=== PATIENT | male | born 1950 | race Caucasian/White ===

== ENCOUNTER 2017-01-17 05:35 | Observation (INO) | payer MEDICAID, OTHER ==
[2017-01-17] MEDS ORDERED: Aspirin 81 MG Tab.Chew PO ONE (05:40)
[2017-01-17] MEDS ORDERED: Nitroglycerin 0.4 MG Tab.SL SL ONE (05:41)
[2017-01-17] MEDS ORDERED: Metoprolol Tartrate 5 MG/5 ML SDV IVPUSH ONE ×2 (05:41→06:05)
[2017-01-17] MEDS ORDERED: Clopidogrel 75 MG Tab PO ONE (05:44)
[2017-01-17] MEDS ORDERED: Nitroglycerin/D5W 25 MG/250 ML BOTTLE IV SCH (05:45)
[2017-01-17] MEDS ORDERED: Heparin Sodium 5,000 Units/ML Vial IVPUSH ONE (06:18)
[2017-01-17] MEDS ORDERED: Heparin Sodium/D5W 25,000 UNITS/500 ML BAG IV STA (06:20)
--- NOTE | 2017-01-17 06:31 | EDM.PDOC ---
ED HPI GENERAL MEDICAL PROBLEM - General Chief Complaint: Chest Pain Stated Complaint: GENERAL Time Seen by Provider: 01/17/17 05:35 Source of Information: Reports: Patient History Limitations: Reports: No Limitations - History of Present Illness INITIAL COMMENTS - FREE TEXT/NARRATIVE: c/o cp watching TV, L sided CP into jaw, pain 06/09, took NTG x 3 at home, dec'd to 8.5 /10 on arrival here via EMS, no meds by EMS, CP 8.5/10 on arrival here, dec'd to 7 after NTG SL x 1 and Lopressor 5 mg IV (which dec'd HR 110 to 85), pt said he had "only twinges" of pain when 03/09, described as much better PO 88% on RA, inc'd to 94% on 6 l/min NC initial SBP 140, dec'd to 130 after NTG x 1, then to 117 after nitro drip 10 mcg /min pt diaphoretic at home, not in EMS, no n/v, no sob smokes < 1 ppd, lives alone stents x 4, last CP and last stent 06/[address] Espinal, senior product consultant with [facility], pt not sure of name last stent may have been [facility], pt not sure basilar rales on exam, no B-lines on bedside u/s, strong contractility of LV on bedside, no pericardial effusion - Related Data Allergies Allergy/AdvReac Type Severity Reaction Status Date / Time acetaminophen Allergy Unknown Cannot Verified 11/12/15 15:45 Remember aspirin Allergy Unknown Cannot Verified 11/12/15 15:45 Remember Iodinated Contrast Media - Allergy Unknown Cannot Verified 11/12/15 15:45 Oral and Remember lactase Allergy Unknown Nausea and Verified 11/12/15 15:45 Vomiting milk Allergy Unknown Cannot Verified 11/12/15 15:45 Remember NSAIDS (Non-Steroidal Allergy Unknown Nausea and Verified 11/12/15 15:45 Anti-Inflamma Vomiting raspberry Allergy Unknown Hives Verified 11/12/15 15:45 Home Meds: Home Meds Aspirin [Mora Chewable Aspirin] 11/12/15 [History] Clopidogrel [Plavix] 11/12/15 [History] Famotidine 11/12/15 [History] Gabapentin [Neurontin] 11/12/15 [History] Methocarbamol 11/12/15 [History] Nitroglycerin [Nitrostat] 0.4 mg SL 11/12/15 [History] Promethazine [Phenergan] 11/12/15 [History] Sucralfate [Carafate] 11/12/15 [History] Tamsulosin [Flomax] 11/12/15 [History] atorvaSTATin [Lipitor] 11/12/15 [History] carBAMazepine [Carbamazepine] 11/12/15 [History] hydrOXYzine Pamoate [Hydroxyzine Pamoate] 11/12/15 [History] Past Medical History HEENT History: Reports: Hard of Hearing, Impaired Vision, Other (See Below) Other HEENT History: dry eye syndrome, tinnitus, migraine headaches, balance problems, seizures Cardiovascular History: Reports: Arrhythmia, CAD, High Cholesterol, Hypertension , CA, Stents Respiratory History: Reports: Asthma, COPD, SOB Other Respiratory History: hx tobacco dependence Gastrointestinal History: Reports: Hepatitis Other Gastrointestinal History: hx of hepatitis B & C, Vitamin B12 deficiency, Pernicious anemia, generalized anemia Genitourinary History: Reports: Prostate Disorder Musculoskeletal History: Reports: Back Pain, Chronic, Neck Pain, Chronic, Other (See Below) Other Musculoskeletal History: joint pain, bracial neuritis Neurological History: Reports: Migraines, Seizure, Other (See Below) Other Neuro History: brachial neuritis or radiculitis, unspecified epilespy, last seizure in 2006, anxiety, dementia Psychiatric History: Reports: Addiction, Anxiety, Bipolar, Dementia, Depression , Schizophrenia, Other (See Below) Other Psychiatric History: cannabis and opioid dependence Endocrine/Metabolic History: Reports: Diabetes, Type II, Other (See Below) Other Endocrine/Metabolic History: Hepatitis B&C Hematologic History: Reports: Anemia, B12 Deficiency, Iron Deficiency Dermatologic History: Reports: Cellulitis - Infectious Disease History Infectious Disease History: Reports: Hepatitis B, Hepatitis C - Past Surgical History Cardiovascular Surgical History: Reports: Coronary Artery Stent, Other (See Below) GI Surgical History: Reports: Appendectomy, Bariatric Procedure, Other (See Below) Musculoskeletal Surgical History: Reports: Shoulder Surgery, Other (See Below) Social & Family History - Family History Oncologic: Reports: Lung - Tobacco Use Smoking Status *Q: Current Every Day Smoker Years of Tobacco use: 50 Packs/Tins Daily: 1 - Recreational Drug Use Recreational Drug Use: Yes ED ROS GENERAL - Review of Systems Review Of Systems: See Below Constitutional: Reports: Diaphoresis HEENT: Reports: No Symptoms Respiratory: Reports: No Symptoms Cardiovascular: Reports: Chest Pain Endocrine: Reports: No Symptoms GI/Abdominal: Reports: No Symptoms : Reports: No Symptoms Musculoskeletal: Reports: Neck Pain Skin: Reports: No Symptoms Neurological: Reports: No Symptoms Psychiatric: Reports: No Symptoms Hematologic/Lymphatic: Reports: No Symptoms Immunologic: Reports: No Symptoms ED EXAM, GENERAL - Physical Exam Exam: See Below Exam Limited By: Other (skin dry, mildly uncomfortable on arrival, no distress or apparent discomfort after initial meds) General Appearance: Alert, WD/WN, No Apparent Distress Ears: Normal External Exam, Normal Canal Nose: Normal Inspection, Normal Mucosa, No Blood Throat/Mouth: Normal Inspection, Normal Lips, Normal Gums, Normal Oropharynx, Normal Voice, No Airway Compromise Head: Atraumatic, Normocephalic Neck: Normal Inspection, Supple, Non-Tender, Full Range of Motion Respiratory/Chest: Other (fair AE, no wheeze, rales at bases, slightly greater on L, no wheezes, no rales) Cardiovascular: Regular Rate, Rhythm, No Gallop, No JVD, No Rub, Other (mild tachy initial, no s3/s4, 2/6 JUAN PABLO at LSB, no heave) GI/Abdominal: Soft, Non-Tender, No Distention Back Exam: Normal Inspection Extremities: Normal Inspection, Normal Range of Motion, Non-Tender, No Pedal Edema, Other (no edema, dec'd turgor UE b/l, no tenting) Neurological: Alert, Oriented, CN II-XII Intact, Normal Cognition, No Motor/ Sensory Deficits Psychiatric: Normal Affect, Normal Mood Skin Exam: Warm, Dry, Intact, Normal Color, No Rash Lymphatic: No Adenopathy Course - Vital Signs Last Recorded V/S: Last Vital Signs Temp 37.0 C 01/17/17 07:00 Pulse 84 01/17/17 07:00 Resp 20 01/17/17 07:00 BP 128/66 01/17/17 07:00 Pulse Ox 96 01/17/17 07:00 - Orders/Labs/Meds Orders: Active Orders 24 hr Category Date Time Status Chest 1V Frontal [CR] Stat Exams 01/17/17 05:46 Taken Heparin Sodium/D5W [Heparin 25,000 Units in D5W 500 ML] Med 01/17/17 06:20 Active 25,000 units in 500 ml IV NOW Nitroglycerin/D5W [Nitroglycerin 25 MG/D5W 250 ML] Med 01/17/17 05:45 Active 25 mg in 250 ml IV TITRATE EKG 12 Lead [EK] Routine Ther 01/17/17 05:46 Ordered EKG 12 Lead [EK] Routine Ther 01/17/17 08:03 Ordered Medication Orders Nitroglycerin/Dextrose (Nitroglycerin 25 Mg/D5w 250 Ml) 25 mg in 250 mls @ 6 mls/hr IV TITRATE ASTON; 10 MCG/MIN PRN Reason: Protocol Last Admin: 01/17/17 06:10 Dose: 10 mcg/min, 6 mls/hr Heparin Sodium/Dextrose (Heparin 25,000 Units In D5w 500 Ml) 25,000 units in 500 mls @ 20 mls/hr IV NOW STA; 1,000 UNITS/HR PRN Reason: Protocol Stop: 01/18/17 07:19 Last Admin: 01/17/17 06:39 Dose: 1,000 units/hr, 20 mls/hr Labs: Laboratory Tests 01/17/17 01/17/17 01/17/17 Range/Units 05:55 05:55 05:55 WBC 9.8 (4.5-12.0) X10-3/uL RBC 5.33 (4.30-5.75) x10(6)uL Hgb 15.1 (11.5-15.5) g/dL Hct 46.1 (30.0-51.3) % MCV 86.5 (80-96) fL MCH 28.3 (27.7-33.6) pg MCHC 32.7 (32.2-35.4) g/dL RDW 15.3 (11.5-15.5) % Plt Count 197 (125-369) X10(3)uL MPV 8.8 (7.4-10.4) fL Neut % (Auto) 78.7 (46-82) % Lymph % (Auto) 7.8 L (13-37) % Knott % (Auto) 10.0 (4-12) % Eos % (Auto) 3 (1.0-5.0) % Baso % (Auto) 0 (0-2) % Neut # (Auto) 7.7 (1.6-8.3) # Lymph # (Auto) 0.8 (0.6-5.0) # Knott # (Auto) 1.0 (0.0-1.3) # Eos # (Auto) 0.3 (0.0-0.8) # Baso # (Auto) 0.0 (0.0-0.2) # PT (8.7-11.1) INR (0.89-1.13) ABG pH (7.35-7.45) ABG pCO2 (35-45) mmHg ABG pO2 (83-108) mmHg ABG HCO3 (22-26) mmol/L ABG O2 Saturation (96-97) % ABG Base Excess (-2-2) Viral Test O2 Delivery Device Sodium 138 (135-145) mmol/L Potassium 3.3 L D (3.5-5.3) mmol/L Chloride 100 D (100-110) mmol/L Carbon Dioxide 27 (23-29) mmol/L BUN 15 (8-23) mg/dL Creatinine 0.8 (0.6-1.3) mg/dL Est Cr Clr Drug Dosing TNP Estimated GFR (MDRD) > 60 (>60) BUN/Creatinine Ratio 18.8 (9-20) Glucose 118 H (80-116) mg/dL Calcium 9.5 (8.6-10.2) mg/dL Total Bilirubin 0.5 (0.1-1.3) mg/dL AST 23 D (5-27) IU/L ALT 15 (14-26) IU/L Alkaline Phosphatase 90 (56-112) IU/L Troponin I 0.01 L (0.02-0.06) NG/ML C-Reactive Protein 0.6 (0.0-1.0) mg/dL B-Natriuretic Peptide (0-100) pg/mL Total Protein 7.4 (6.0-8.0) g/dL Albumin 4.2 (3.2-4.6) g/dL Globulin 3.2 g/dL Albumin/Globulin Ratio 1.3 01/17/17 01/17/17 01/17/17 Range/Units 05:55 05:55 06:00 WBC (4.5-12.0) X10-3/uL RBC (4.30-5.75) x10(6)uL Hgb (11.5-15.5) g/dL Hct (30.0-51.3) % MCV (80-96) fL MCH (27.7-33.6) pg MCHC (32.2-35.4) g/dL RDW (11.5-15.5) % Plt Count (125-369) X10(3)uL MPV (7.4-10.4) fL Neut % (Auto) (46-82) % Lymph % (Auto) (13-37) % Knott % (Auto) (4-12) % Eos % (Auto) (1.0-5.0) % Baso % (Auto) (0-2) % Neut # (Auto) (1.6-8.3) # Lymph # (Auto) (0.6-5.0) # Knott # (Auto) (0.0-1.3) # Eos # (Auto) (0.0-0.8) # Baso # (Auto) (0.0-0.2) # PT 16.1 H (8.7-11.1) INR 1.58 H (0.89-1.13) ABG pH 7.36 (7.35-7.45) ABG pCO2 52 H (35-45) mmHg ABG pO2 86 (83-108) mmHg ABG HCO3 29 H (22-26) mmol/L ABG O2 Saturation 96 (96-97) % ABG Base Excess 2.8 H (-2-2) Viral Test Passed O2 Delivery Device Nasal cannula Sodium (135-145) mmol/L Potassium (3.5-5.3) mmol/L Chloride (100-110) mmol/L Carbon Dioxide (23-29) mmol/L BUN (8-23) mg/dL Creatinine (0.6-1.3) mg/dL Est Cr Clr Drug Dosing Estimated GFR (MDRD) (>60) BUN/Creatinine Ratio (9-20) Glucose (80-116) mg/dL Calcium (8.6-10.2) mg/dL Total Bilirubin (0.1-1.3) mg/dL AST (5-27) IU/L ALT (14-26) IU/L Alkaline Phosphatase (56-112) IU/L Troponin I (0.02-0.06) NG/ML C-Reactive Protein (0.0-1.0) mg/dL B-Natriuretic Peptide 82 (0-100) pg/mL Total Protein (6.0-8.0) g/dL Albumin (3.2-4.6) g/dL Globulin g/dL Albumin/Globulin Ratio Meds: Medications Generic Name Dose Route Start Last Admin Trade Name Freq PRN Reason Stop Dose Admin Nitroglycerin/Dextrose 25 mg in 250 mls @ 6 mls/hr 01/17/17 05:45 01/17/17 06 :10 Nitroglycerin 25 Mg/D5w 250 Ml IV 10 mcg/min TITRATE ASTON 6 mls/hr Protocol Administration 10 MCG/MIN Heparin Sodium/Dextrose 25,000 units in 500 mls @ 20 mls/hr 01/17/17 06:20 06:39 Heparin 25,000 Units In D5w 500 Ml IV 01/18/17 07:19 1,000 units/hr NOW STA 20 mls/hr Protocol Administration 1,000 UNITS/HR Discontinued Medications Generic Name Dose Route Start Last Admin Trade Name Rodriugeq PRN Reason Stop Dose Admin Aspirin 324 mg 01/17/17 05:40 01/17/17 06:54 Aspirin PO 01/17/17 05:41 324 mg ONETIME ONE Administration Clopidogrel Bisulfate 600 mg 01/17/17 05:44 01/17/17 06:55 Plavix PO 01/17/17 05:45 600 mg ONETIME ONE Administration Al Hydroxide/Mg Hydroxide 30 0 ml 01/17/17 06:59 01/17/17 07:46 ml/ Lidocaine HCl 15 ml PO 01/17/17 07:00 15 ml ONETIME ONE Administration Heparin Sodium (Porcine) 4,000 units 01/17/17 06:18 01/17/17 06:38 Heparin Sodium IVPUSH 01/17/17 06:19 4,000 units ONETIME ONE Administration Metoprolol Tartrate 5 mg 01/17/17 05:41 01/17/17 06:54 Lopressor IVPUSH 01/17/17 05:42 5 mg ONETIME ONE Administration Metoprolol Tartrate 5 mg 01/17/17 06:05 01/17/17 06:54 Lopressor IVPUSH 01/17/17 06:06 5 mg ONETIME ONE Administration Nitroglycerin 0.4 mg 01/17/17 05:41 01/17/17 05:41 Nitrostat SL 01/17/17 05:42 0.4 mg ONETIME ONE Administration Potassium Chloride 40 meq 01/17/17 06:50 01/17/17 07:31 Klor-Con M20 PO 01/17/17 06:51 40 meq ONETIME ONE Administration - Re-Assessments/Exams Free Text/Narrative Re-Assessment/Exam: 01/17/17 08:22 pt appears to be pain free after meds, currently sleeping, repeat EKG unchanged and without acute changes. Still on nitro drip, had a ROSSI, then fell asleep before APAP could be given. Heparin bolus and drip begun prior to labs, however INR 1.58 and drip was stopped. Labs otherwise unremarkable except for K 3.3. CxR without acute changes. ABG shows inc'd CO2. Pt noncompliant. Says he went to [facility] once, says that maybe he should go back. d/w Dr Lugo who accepted him in admission 01/17/17 08:26 Departure - Departure Time of Disposition: 08:25 Disposition: Refer to Observation Condition: fair Clinical Impression: Acute coronary syndrome, Current smoker, Noncompliance, Hypokalemia, Carbon dioxide retention Forms: ED Department Discharge - My Orders Last 24 Hours: My Active Orders 01/17/17 05:45 Nitroglycerin/D5W [Nitroglycerin 25 MG/D5W 250 ML] 25 mg in 250 ml IV TITRATE 01/17/17 05:46 Chest 1V Frontal [CR] Stat EKG 12 Lead [EK] Routine 01/17/17 06:20 Heparin Sodium/D5W [Heparin 25,000 Units in D5W 500 ML] 25,000 units in 500 ml IV NOW 01/17/17 08:03 EKG 12 Lead [EK] Routine - Assessment/Plan Last 24 Hours: My Active Orders 01/17/17 05:45 Nitroglycerin/D5W [Nitroglycerin 25 MG/D5W 250 ML] 25 mg in 250 ml IV TITRATE 01/17/17 05:46 Chest 1V Frontal [CR] Stat EKG 12 Lead [EK] Routine 01/17/17 06:20 Heparin Sodium/D5W [Heparin 25,000 Units in D5W 500 ML] 25,000 units in 500 ml IV NOW 01/17/17 08:03 EKG 12 Lead [EK] Routine
[2017-01-17] MEDS ORDERED: Potassium Chloride 20 MEQ Tab.ER PO ONE (06:50)
[2017-01-17] MEDS ORDERED: Alum Hydroxide/Mag Hydroxide 30 ML, Lidocaine 2% 15 ML PO ONE ×2 (06:59)
[2017-01-17] MEDS ORDERED: Acetaminophen 325 MG Tab PO PRN (08:27)
[2017-01-17] MEDS ORDERED: Ondansetron 4 MG/2 ML SDV IV PRN (08:27)
[2017-01-17] MEDS ORDERED: Methocarbamol 500 MG Tab PO PRN (11:07)
[2017-01-17] MEDS ORDERED: Lisinopril 20 MG Tab PO SCH (12:00)
[2017-01-17] MEDS ORDERED: Famotidine 20 MG Tab PO SCH (12:00)
[2017-01-17] MEDS ORDERED: carBAMazepine 200 MG Tab PO SCH (12:00)
[2017-01-17] MEDS ORDERED: Formoterol/Mometasone 100-5 MCG 8.8 GM Inhaler IH SCH (12:00)
[2017-01-17] MEDS ORDERED: Metoprolol Succinate 25 MG Tab.ER PO SCH (12:00)
[2017-01-17] MEDS ORDERED: Morphine 2 MG/ML Syringe IVPUSH PRN (12:28)
[2017-01-17] MEDS: Morphine 2 MG/ML Syringe IVPUSH PRN ×2 (13:00→15:05)
[2017-01-17 17:17] VITALS: BP 149/82
[2017-01-17] MEDS ORDERED: Tamsulosin 0.4 MG Cap.ER PO SCH (21:00)
[2017-01-17] MEDS ORDERED: Gabapentin 600 MG Tab PO SCH (21:00)
[2017-01-17] MEDS ORDERED: atorvaSTATin 40 MG Tab PO SCH (21:00)
--- NOTE | 2017-01-17 21:28 | HP ---
ADMISSION DATE: 01/17/2017 REASON FOR ADMISSION: Complicated chest pain. HISTORY OF PRESENT ILLNESS: Jah Cruz is a 66-year-old, male from [place], seen and evaluated at [facility] in the early childhood services coordinator hours of 01/17/2017. Sometime in the early childhood services coordinator hours, between midnight and 2 a.m., he began to develop severe precordial pain, thought to be heart burn, some radiation to his jaw and the left shoulder. The pain became more problematic. He was transferred by EMS to [facility]. Evaluation took place for marked tachycardia. Intervention included heparin, IV metoprolol for rate control, morphine for pain, institution of nitroglycerin. Diagnostic tests revealed normal troponin, moderately abnormal EKG results noted. He was transferred to ICU for intervention. MEDICATIONS: Please see med recon list. 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 He has had some fatty tumors removed from his right shoulder, and complicated neck surgery. Had an incidental appendectomy. He has had troublesome right thumb fracture and left 5th finger injury with resultant surgery. Neuropathic pain and complicated shoulder pain. No other operative procedures, hospitalizations, or unusual childhood diseases, major injuries, or fractures. SOCIAL HISTORY: Disabled/retired, worked as a flexographic press operator. Eleven girls, lost one son to an accident. Long-term smoker 1-2 pack per day. Moderate alcohol consumption. No illicit drug use. FAMILY HISTORY: Positive for early heart disease. PHYSICAL EXAMINATION: VITAL SIGNS: Stable. When seen in the ICU, he appeared to be comfortable. HEENT: Reveals funduscopic benign. Bright TMs. Clear nasal discharge. Mouth and oropharynx clear. Poor dentition. NECK: Benign. Thyroid small. CHEST: Clear in all lung garcia. No adventitious sounds. HEART: Regular rate murmur. ABDOMEN: Soft, benign multiple surgical scars well healed. No hepatosplenomegaly, and RECTAL: Deferred. EXTREMITIES: Well perfused. LABORATORY STUDIES: On admission, CBC revealed hemoglobin 15.1, hematocrit 46.1, white count 9800, INR of 1.58. Arterial blood gases pH 7.36. Electrolytes reveal potassium 3.3, random glucose 118, troponin 0.01. CRP normal. BNP normal. Urinalysis is positive for marijuana. Chest x-ray, no major pathology EKG ST-T changes. Q-waves poor R-wave progression. Atypical chest pain with known coronary history. PLAN: ICU admission indicated, we will continue nitroglycerin drip, close observation, appears to be pain free at this time, we will observe accordingly. /[id number] KATIE/TAE
--- NOTE | 2017-01-18 03:12 | DISCH ---
DISCHARGE DATE: 01/17/2017 Jeff Cruz is a 66-year-old male, admitted with atypical precordial chest pain and known coronary disease. Appropriate intervention: IV metoprolol, IV heparin, Plavix, institution of nitroglycerin drip. He was admitted to ICU. Continued to have some peculiar right arm and shoulder pain, but precordial chest pain had resolved. Nitroglycerin had been bumped from 10 to 15 mcg, intravenous morphine for shoulder pain. Blood pressure was labile and responsive, continued to be elevated. Chest pain did not reappear, but difficult to assess the degree. Second troponin returned at 0.12, elevated normal 0.06. Spoke with Dr. Dobbs, [facility], agreed to accept the patient in transfer. He was transferred by a local ambulance with nitroglycerin in place. /[id number] KATIE/TAE
[2017-01-18] MEDS ORDERED: Aspirin 81 MG Tab.Chew PO SCH (09:00)
--- NOTE | 2017-01-19 11:45 | CR ---
INDICATION: Chest pain, rales at bases. CHEST: A single AP upright view of the chest was obtained portable 01/16/2017 and compared with 11/12/2015, revealing suggestion of decreased prominence of the upper lung field pulmonary vasculature with no definite active infiltrate or effusion. The heart did not appear grossly enlarged. The aorta is calcified in the arch area. Overlying EKG leads are noted. Degenerative changes are noted at the left and, to a lesser extent, right AC joints. No consolidating pneumonia or effusion was seen. The slightly heavy markings at the lung bases are essentially unchanged from the previous study. The possibility of a minimal patchy bronchopneumonia is difficult to entirely exclude with the relatively poor inspiration and slightly heavy markings at the lung bases. IMPRESSION: No definite acute process - findings as noted above. MTDD
== END 2017-01-17 15:14 ==
LOC: FB.ED 05:35 → FB.ICU 08:27
PROVIDERS: ADMIT Family Medicine; ATTEND Family Medicine
DX: R07.89 Other chest pain (principal); I25.10 Atherosclerotic heart disease of native coronary artery without angina pectoris; E78.00 Pure hypercholesterolemia, unspecified; J45.909 Unspecified asthma, uncomplicated; J44.9 Chronic obstructive pulmonary disease, unspecified; Z87.891 Personal history of nicotine dependence; E53.8 Deficiency of other specified B group vitamins; R06.02 Shortness of breath; Z79.899 Other long term (current) drug therapy
CPT/HCPCS: 36415; 36600; 71010; 80053; 80305; 82803; 83880; 84484; 85025; 85610; 86140; 93005; 96365; 96366; 96368; 96375; 96376; 99285; A9270; G0378; J1644; J2270; 96367; 99220; J3490

== ENCOUNTER 2017-03-16 10:04 | Emergency (ER) | payer MEDICAID, OTHER ==
[2017-03-16 10:22] VITALS: BP 128/75
--- NOTE | 2017-03-16 10:36 | EDM.PDOC ---
ED HPI GENERAL MEDICAL PROBLEM - General Chief Complaint: General Stated Complaint: RIB IN UPPER CHEST Time Seen by Provider: 03/16/17 10:25 Source of Information: Reports: Patient History Limitations: Reports: No Limitations - History of Present Illness INITIAL COMMENTS - FREE TEXT/NARRATIVE: 66 yo male new in the area from [place], [place] presents with a bruise to his central chest that he is not sure where it came from. Wonders if "a rib is out" . No other complaints today. Onset: Unknown/Unsure Duration: Hour(s): Location: Reports: Chest Quality: Reports: Other (Tender only with palpation.) Severity: Mild Worsens with: Reports: Other (touching.) Context: Reports: Other (unknown) Associated Symptoms: Reports: No Other Symptoms Treatments [employer] CLOSING COORDINATOR: Reports: Other (see below) (none) lower back, neck & shoulder Pain Score (Numeric/FACES): 8 - Related Data Allergies Allergy/AdvReac Type Severity Reaction Status Date / Time acetaminophen Allergy Unknown Cannot Verified 03/16/17 10:09 Remember aspirin Allergy Unknown Cannot Verified 03/16/17 10:09 Remember Iodinated Contrast- Oral and Allergy Unknown Cannot Verified 03/16/17 10:09 IV Dye Remember lactase Allergy Unknown Nausea and Verified 03/16/17 10:09 Vomiting milk Allergy Unknown Cannot Verified 03/16/17 10:09 Remember NSAIDS (Non-Steroidal Allergy Unknown Nausea and Verified 03/16/17 10:09 Anti-Inflamma Vomiting raspberry Allergy Unknown Hives Verified 03/16/17 10:09 wool Allergy Itching Uncoded 03/16/17 10:09 Home Meds: Home Meds Aspirin [Mora Chewable Aspirin] 81 mg PO DAILY 11/12/15 [History] Famotidine 20 mg PO BID 11/12/15 [History] Gabapentin [Neurontin] 600 mg PO BEDTIME 11/12/15 [History] Methocarbamol 500 mg PO TID PRN 11/12/15 [History] Nitroglycerin [Nitrostat] 0.4 mg SL ASDIRECTED PRN 11/12/15 [History] Promethazine [Phenergan] 25 mg PO BID PRN 11/12/15 [History] Sucralfate [Carafate] 1 gm PO QIDACANDBED 11/12/15 [History] Tamsulosin [Flomax] 0.4 mg PO BEDTIME 11/12/15 [History] atorvaSTATin [Lipitor] 80 mg PO BEDTIME 11/12/15 [History] carBAMazepine [Carbamazepine] 200 mg PO BID 11/12/15 [History] hydrOXYzine Pamoate [Hydroxyzine Pamoate] 50 mg PO BID 11/12/15 [History] Albuterol [Ventolin HFA] 2 inh INH Q6H PRN 01/17/17 [History] Alendronate Sodium [Alendronate] 70 mg PO MO 01/17/17 [History] Budesonide/Formoterol Fumarate [Symbicort 80-4.5 Mcg Inhaler] 2 puff INH BID [History] Capsaicin [Zostrix 0.025% Crm] 1 applic TOP ASDIRECTED PRN 01/17/17 [History] Cholecalciferol (Vitamin D3) [Vitamin D] 5,000 unit PO MO 01/17/17 [History] Cyanocobalamin (Vitamin B12) [Vitamin B12] 100 mcg PO DAILY 01/17/17 [History] Ferrous Sulfate 325 mg PO TIDMEALS 01/17/17 [History] Lisinopril 20 mg PO DAILY 01/17/17 [History] Magnesium Oxide 420 mg PO BID 01/17/17 [History] Metoprolol Succinate [Toprol XL] 75 mg PO DAILY 01/17/17 [History] Multivitamin [Multi-Vitamin Daily] 1 tab PO DAILY 01/17/17 [History] Past Medical History HEENT History: Reports: Hard of Hearing, Impaired Vision, Other (See Below) Other HEENT History: dry eye syndrome, tinnitus, migraine headaches, balance problems, seizures Cardiovascular History: Reports: Arrhythmia, CAD, High Cholesterol, Hypertension , [place], Stents Respiratory History: Reports: Asthma, COPD, SOB Other Respiratory History: hx tobacco dependence Gastrointestinal History: Reports: Hepatitis Other Gastrointestinal History: hx of hepatitis B & C, Vitamin B12 deficiency, Pernicious anemia, generalized anemia Genitourinary History: Reports: Prostate Disorder Musculoskeletal History: Reports: Back Pain, Chronic, Neck Pain, Chronic, Other (See Below) Other Musculoskeletal History: joint pain, bracial neuritis Neurological History: Reports: Migraines, Seizure, Other (See Below) Other Neuro History: brachial neuritis or radiculitis, unspecified epilespy, last seizure in 2006, anxiety, dementia Psychiatric History: Reports: Addiction, Anxiety, Bipolar, Dementia, Depression , PTSD, Schizophrenia, Other (See Below) Other Psychiatric History: cannabis and opioid dependence Endocrine/Metabolic History: Reports: Diabetes, Type II, Other (See Below) Other Endocrine/Metabolic History: Hepatitis B&C Hematologic History: Reports: Anemia, B12 Deficiency, Iron Deficiency Dermatologic History: Reports: Cellulitis - Infectious Disease History Infectious Disease History: Reports: Hepatitis B, Hepatitis C - Past Surgical History Head Surgeries/Procedures: Reports: None Cardiovascular Surgical History: Reports: Coronary Artery Stent, Other (See Below) GI Surgical History: Reports: Appendectomy, Bariatric Procedure, Other (See Below) Other GI Surgeries/Procedures: stomach surgery "hole in stomach" Musculoskeletal Surgical History: Reports: Shoulder Surgery Social & Family History - Family History Family Medical History: Unobtainable Oncologic: Reports: Lung - Tobacco Use Smoking Status *Q: Current Every Day Smoker Years of Tobacco use: 50 Packs/Tins Daily: 0.1 Used Tobacco, but Quit: No Second Hand Smoke Exposure: No - Caffeine Use Caffeine Use: Reports: Coffee Other Caffeine Use: Pt drinks 2 cups a day. - Recreational Drug Use Recreational Drug Use: No Recreational Drug Type: Reports: Marijuana/Hashish Recreational Drug Use Frequency: Daily ED ROS GENERAL - Review of Systems Review Of Systems: See Below Constitutional: Reports: No Symptoms Respiratory: Reports: No Symptoms Cardiovascular: Reports: No Symptoms Musculoskeletal: Reports: No Symptoms Skin: Reports: Bruising (to chest only) Neurological: Reports: No Symptoms ED EXAM, GENERAL - Physical Exam Exam: See Below Exam Limited By: No Limitations General Appearance: Alert, WD/WN, No Apparent Distress, Thin Eye Exam: Bilateral Eye: Normal Inspection Ears: Normal External Exam, Normal Canal, Hearing Grossly Normal Ear Exam: Bilateral Ear: Auricle Normal, Canal Normal Nose: Normal Inspection, Normal Mucosa, No Blood Throat/Mouth: Normal Inspection, Normal Lips, Normal Teeth, Normal Oropharynx, Normal Voice, No Airway Compromise Head: Atraumatic, Normocephalic Neck: Normal Inspection, Supple, Non-Tender Respiratory/Chest: No Respiratory Distress, Lungs Clear, Normal Breath Sounds, No Accessory Muscle Use Cardiovascular: Regular Rate, Rhythm, No Edema GI/Abdominal: Normal Bowel Sounds, Soft, Non-Tender, No Distention Back Exam: Normal Inspection Extremities: Normal Inspection, Normal Range of Motion, Non-Tender, No Pedal Edema Neurological: Alert, Oriented, CN II-XII Intact, No Motor/Sensory Deficits Psychiatric: Normal Affect, Normal Mood Skin Exam: Warm, Dry, Intact, No Rash, Other (bruise to central chest over sternum about 4 cm in diameter. ) Lymphatic: No Adenopathy Course - Vital Signs Last Recorded V/S: Last Vital Signs Temp 36.5 C 03/16/17 10:05 Pulse 87 03/16/17 10:05 Resp 18 03/16/17 10:05 BP 128/75 03/16/17 10:05 Pulse Ox 92 L 03/16/17 10:05 Departure - Departure Time of Disposition: 10:37 Disposition: Home, Self-Care 01 Condition: Good Clinical Impression: Superficial bruising of chest wall Qualifiers: Encounter type: initial encounter Laterality: unspecified laterality Qualified Code(s): S20.219A - Contusion of unspecified front wall of thorax, initial encounter - Discharge Information Referrals: PCP,None [Primary Care Provider] - Forms: ED Department Discharge Additional Instructions: No treatment needed. Recheck as needed.
== END 2017-03-16 10:35 | disposition home or self-care (01) ==
LOC: FB.ED 10:04
DX: S20.219A Contusion of unspecified front wall of thorax, initial encounter (principal); H54.7 Unspecified visual loss; G43.909 Migraine, unspecified, not intractable, without status migrainosus; I25.10 Atherosclerotic heart disease of native coronary artery without angina pectoris; E78.00 Pure hypercholesterolemia, unspecified; I10 Essential (primary) hypertension; I25.2 Old myocardial infarction; J45.909 Unspecified asthma, uncomplicated; J44.9 Chronic obstructive pulmonary disease, unspecified; E11.9 Type 2 diabetes mellitus without complications; F17.210 Nicotine dependence, cigarettes, uncomplicated; Z95.5 Presence of coronary angioplasty implant and graft; Z88.8 Allergy status to other drugs, medicaments and biological substances; Z91.011 Allergy to milk products; Z91.041 Radiographic dye allergy status; Z91.018 Allergy to other foods; Z91.048 Other nonmedicinal substance allergy status; Z79.82 Long term (current) use of aspirin; Z79.899 Other long term (current) drug therapy; Z98.84 Bariatric surgery status
CPT/HCPCS: 99282; 99283

== ENCOUNTER 2017-08-04 12:03 | Inpatient (IN) | payer MEDICAID, OTHER ==
[2017-08-04] MEDS ORDERED: Ondansetron 4 MG/2 ML SDV IV PRN (12:26)
[2017-08-04] MEDS ORDERED: Sodium Chloride 0.9% 10 ML Syringe FLUSH PRN (12:26)
[2017-08-04] MEDS ORDERED: Sodium Chloride 0.9% 1,000 ML IV SCH (12:30)
--- NOTE | 2017-08-04 12:48 | EDM.PDOC ---
ED HPI GENERAL MEDICAL PROBLEM - General Stated Complaint: WEAKNESS Time Seen by Provider: 08/04/17 12:03 Source of Information: Reports: Patient, Family History Limitations: Reports: Physical Impairment, Respiratory Distress - History of Present Illness INITIAL COMMENTS - FREE TEXT/NARRATIVE: 66 y.o.w.m -smoker-H/O COPD, HTN, came to the ed with his brother due to weakness, SOB and dehydration. Pt has a chronic, intermittent non prod. cough.pt is a poor historian, HPI was given by his brother. No F/C no N/V no other acute medical issues. BP 199/91 HR 115 RR 24 O2 sat 93% on RA Onset: Today Onset Date: 07/31/17 Onset Time: 06:00 Duration: Getting Worse, Intermittent Location: Reports: Chest Quality: Reports: Other (sob) Severity: Moderate Improves with: Reports: Rest Worsens with: Reports: Movement Context: Reports: Other (H/O COPD, smoker) Associated Symptoms: Reports: Cough, Shortness of Breath, Weakness Abdomen Pain Score (Numeric/FACES): 7 - Related Data Allergies Allergy/AdvReac Type Severity Reaction Status Date / Time acetaminophen Allergy Unknown Cannot Verified 03/16/17 10:09 Remember aspirin Allergy Unknown Cannot Verified 03/16/17 10:09 Remember Iodinated Contrast- Oral and Allergy Unknown Cannot Verified 03/16/17 10:09 IV Dye Remember lactase Allergy Unknown Nausea and Verified 03/16/17 10:09 Vomiting milk Allergy Unknown Cannot Verified 03/16/17 10:09 Remember NSAIDS (Non-Steroidal Allergy Unknown Nausea and Verified 03/16/17 10:09 Anti-Inflamma Vomiting raspberry Allergy Unknown Hives Verified 03/16/17 10:09 wool Allergy Itching Uncoded 03/16/17 10:09 Home Meds: Home Meds Aspirin [Mora Chewable Aspirin] 81 mg PO DAILY 11/12/15 [History] Famotidine 20 mg PO BID 11/12/15 [History] Gabapentin [Neurontin] 600 mg PO BEDTIME 11/12/15 [History] Methocarbamol 500 mg PO TID PRN 11/12/15 [History] Nitroglycerin [Nitrostat] 0.4 mg SL ASDIRECTED PRN 11/12/15 [History] Promethazine [Phenergan] 25 mg PO BID PRN 11/12/15 [History] Sucralfate [Carafate] 1 gm PO QIDACANDBED 11/12/15 [History] Tamsulosin [Flomax] 0.4 mg PO BEDTIME 11/12/15 [History] atorvaSTATin [Lipitor] 80 mg PO BEDTIME 11/12/15 [History] carBAMazepine [Carbamazepine] 200 mg PO BID 11/12/15 [History] hydrOXYzine Pamoate [Hydroxyzine Pamoate] 50 mg PO BID 11/12/15 [History] Albuterol [Ventolin HFA] 2 inh INH Q6H PRN 01/17/17 [History] Alendronate Sodium [Alendronate] 70 mg PO MO 01/17/17 [History] Budesonide/Formoterol Fumarate [Symbicort 80-4.5 Mcg Inhaler] 2 puff INH BID [History] Capsaicin [Zostrix 0.025% Crm] 1 applic TOP ASDIRECTED PRN 01/17/17 [History] Ferrous Sulfate 325 mg PO BID 01/17/17 [History] Lisinopril 20 mg PO BID 01/17/17 [History] Magnesium Oxide 420 mg PO BID 01/17/17 [History] Multivitamin [Multi-Vitamin Daily] 1 tab PO DAILY 01/17/17 [History] Carvedilol [Coreg] 6.25 mg PO BID 08/04/17 [History] Cholecalciferol (Vitamin D3) [Vitamin D] 50,000 unit PO MO 08/04/17 [History] Cyanocobalamin (Vitamin B12) [Vitamin B12] 100 mcg PO DAILY 08/04/17 [History] Isosorbide Mononitrate [Imdur] 30 mg DAILY 08/04/17 [History] Loperamide [Imodium] 2 mg PO QID PRN 08/04/17 [History] Ondansetron [Zofran] 4 mg PO Q8H PRN 08/04/17 [History] Past Medical History HEENT History: Reports: Hard of Hearing, Impaired Vision, Other (See Below) Other HEENT History: dry eye syndrome, tinnitus, migraine headaches, balance problems, seizures Cardiovascular History: Reports: Arrhythmia, CAD, High Cholesterol, Hypertension , [place], Stents Respiratory History: Reports: Asthma, COPD, SOB Other Respiratory History: hx tobacco dependence Gastrointestinal History: Reports: Hepatitis Other Gastrointestinal History: hx of hepatitis B & C, Vitamin B12 deficiency, Pernicious anemia, generalized anemia Genitourinary History: Reports: Prostate Disorder Musculoskeletal History: Reports: Back Pain, Chronic, Neck Pain, Chronic, Other (See Below) Other Musculoskeletal History: joint pain, bracial neuritis Neurological History: Reports: Migraines, Seizure, Other (See Below) Other Neuro History: brachial neuritis or radiculitis, unspecified epilespy, last seizure in 2006, anxiety, dementia Psychiatric History: Reports: Addiction, Anxiety, Bipolar, Dementia, Depression , PTSD, Schizophrenia, Other (See Below) Other Psychiatric History: cannabis and opioid dependence Endocrine/Metabolic History: Reports: Diabetes, Type II, Other (See Below) Other Endocrine/Metabolic History: Hepatitis B&C Hematologic History: Reports: Anemia, B12 Deficiency, Iron Deficiency Dermatologic History: Reports: Cellulitis - Infectious Disease History Infectious Disease History: Reports: Hepatitis B, Hepatitis C - Past Surgical History Head Surgeries/Procedures: Reports: None Cardiovascular Surgical History: Reports: Coronary Artery Stent, Other (See Below) GI Surgical History: Reports: Appendectomy, Bariatric Procedure, Other (See Below) Other GI Surgeries/Procedures: stomach surgery "hole in stomach" Musculoskeletal Surgical History: Reports: Shoulder Surgery Social & Family History - Family History Family Medical History: Unobtainable Oncologic: Reports: Lung - Tobacco Use Smoking Status *Q: Current Every Day Smoker Years of Tobacco use: 50 Packs/Tins Daily: 0.1 Used Tobacco, but Quit: No Second Hand Smoke Exposure: No - Caffeine Use Caffeine Use: Reports: Coffee Other Caffeine Use: Pt drinks 2 cups a day. - Recreational Drug Use Recreational Drug Use: No Recreational Drug Type: Reports: Marijuana/Hashish Recreational Drug Use Frequency: Daily ED ROS GENERAL - Review of Systems Review Of Systems: See Below Constitutional: Reports: Weakness, Decreased Appetite HEENT: Reports: No Symptoms Respiratory: Reports: Shortness of Breath Cardiovascular: Reports: No Symptoms Endocrine: Reports: No Symptoms GI/Abdominal: Reports: No Symptoms : Reports: No Symptoms Musculoskeletal: Reports: No Symptoms Skin: Reports: No Symptoms Neurological: Reports: No Symptoms Psychiatric: Reports: No Symptoms Hematologic/Lymphatic: Reports: No Symptoms Immunologic: Reports: No Symptoms ED EXAM, GENERAL - Physical Exam Exam: See Below Exam Limited By: Physical Impairment General Appearance: Alert, Mild Distress, Moderate Distress, Cachetic Eye Exam: Bilateral Eye: Normal Inspection Ears: Normal External Exam Ear Exam: Bilateral Ear: Auricle Normal Nose: Normal Inspection Throat/Mouth: Normal Lips Head: Atraumatic, Normocephalic Neck: Normal Inspection, Supple, Non-Tender, Full Range of Motion Respiratory/Chest: Respiratory Distress, Decreased Breath Sounds, Rhonchi, Wheezing Cardiovascular: Normal Peripheral Pulses, Regular Rate, Rhythm, No Edema GI/Abdominal: Normal Bowel Sounds, Soft, Non-Tender (Male) Exam: Deferred Rectal (Males) Exam: Deferred Back Exam: Normal Inspection Extremities: Normal Inspection, Normal Range of Motion Neurological: Alert, Oriented, CN II-XII Intact Psychiatric: Normal Affect Skin Exam: Warm, Dry, Intact, Normal Color, No Rash Lymphatic: No Adenopathy EKG INTERPRETATION EKG Date: 08/04/17 Time: 13:30 Rhythm: NSR Rate (Beats/Min): 98 [place]: LAD-Left Goree Deviation P-Wave: Present QRS: Normal ST-T: Normal QT: Normal Comparison: NA - No Prior EKG Course - Vital Signs Text/Narrative:: 66 y.o.w.m -smoker-H/O COPD, HTN, came to the ed with his brother due to weakness, SOB and dehydration. Pt has a chronic, intermittent non prod. cough.pt is a poor historian, HPI was given by his brother. No F/C no N/V no other acute medical issues. BP 199/91 HR 115 RR 24 O2 sat 93% on RA PE: Thin, cachexic WM with poor airmovement, and too weak to ambulate, Zaid JVD, no legswelling Lab: WBC 8.0 HGB 16.8 HCT 51.8 INR 1.16 GFR > 60 BNP 3595 Imaging: CXR: COPD, NO CHF, no change from 12/2015 as per RAD Impression: COPD exacerbation, Dehydration, cachexia, weakness, HTN, elevated BNP Tx: Duoneb, Solumedrol, NS Reexam: Improved 3.10pm Consultation: Dr. Dalton, Hospitalist: accepted the pt for admission Plan: Admit to car. Last Recorded V/S: Last Vital Signs Temp 35.6 C 08/04/17 12:06 Pulse 120 H 08/04/17 12:06 Resp 20 08/04/17 15:10 BP 160/83 H 08/04/17 15:10 Pulse Ox 94 L 08/04/17 15:10 - Orders/Labs/Meds Orders: Active Orders 24 hr Category Date Time Status Patient Status [ADT] Routine ADT 08/04/17 15:16 Active EKG Documentation Completion [RC] ASDIRECTED Care 08/04/17 12:43 Active Oxygen Therapy [RC] PRN Care 08/04/17 12:26 Inactive Oxygen Therapy [RC] PRN Care 08/04/17 15:16 Active RT Aerosol Therapy [RC] ASDIRECTED Care 08/04/17 14:12 Active Up With Assistance [RC] ASDIRECTED Care 08/04/17 12:26 Inactive Up With Assistance [RC] ASDIRECTED Care 08/04/17 15:16 Active VTE/DVT Education [RC] Per Unit Routine Care 08/04/17 12:26 Inactive VTE/DVT Education [RC] Per Unit Routine Care 08/04/17 15:16 Active Vital Signs [RC] Q4H Care 08/04/17 12:26 Inactive Vital Signs [RC] Q4H Care 08/04/17 15:16 Active Heart Healthy Diet [DIET] Diet 08/04/17 Breakfast Ordered CXR [Chest 1V Frontal] [CR] Stat Exams 08/04/17 12:44 Taken Resuscitation Status Routine Resus Stat 08/04/17 15:16 Ordered EKG 12 Lead [EK] Routine Ther 08/04/17 12:43 Ordered Medication Orders Albuterol (Proventil Neb Soln) 2.5 mg NEB Q4H PRN PRN Reason: sob Labs: Laboratory Tests 08/04/17 08/04/17 08/04/17 Range/Units 13:20 13:20 13:20 WBC 8.0 (4.5-12.0) X10-3/uL RBC 6.01 H (4.30-5.75) x10(6)uL Hgb 16.9 H (11.5-15.5) g/dL Hct 52.4 H (30.0-51.3) % MCV 87.2 (80-96) fL MCH 28.1 (27.7-33.6) pg MCHC 32.2 (32.2-35.4) g/dL RDW 14.7 (11.5-15.5) % Plt Count 165 (125-369) X10(3)uL MPV 11.4 H (7.4-10.4) fL Add Manual Diff Yes Neutrophils % (Manual) 72 (46-82) % Lymphocytes % (Manual) 12 L (13-37) % Monocytes % (Manual) 16 H (4-12) % Giant Platelets Few PT 12.5 H (8.7-11.1) INR 1.23 H (0.89-1.13) Sodium 135 (135-145) mmol/L Potassium 4.4 (3.5-5.3) mmol/L Chloride 94 L (100-110) mmol/L Carbon Dioxide 27 (21-32) mmol/L BUN 19 H (7-18) mg/dL Creatinine 1.0 (0.70-1.30) mg/dL Est Cr Clr Drug Dosing 55.06 mL/min Estimated GFR (MDRD) > 60 (>60) BUN/Creatinine Ratio 19.0 (9-20) Glucose 118 H (80-116) mg/dL Calcium 9.9 (8.6-10.2) mg/dL Troponin I (<0.017-0.056) ng/mL NT-Pro-B Natriuret Pep (<=125) pg/mL Urine Color (YELLOW) Urine Appearance (CLEAR) Urine pH (5.0-6.5) Ur Specific [place] (1.010-1.025) Urine Protein (NEGATIVE) mg/dL Urine Glucose (UA) (NEGATIVE) mg/dL Urine Ketones (NEGATIVE) mg/dL Urine Occult Blood (NEGATIVE) Urine Nitrite (NEGATIVE) Urine Bilirubin (NEGATIVE) Urine Urobilinogen (NEGATIVE) mg/dL Ur Leukocyte Esterase (NEGATIVE) Urine RBC (0) Urine WBC (0) Ur Squamous Epith Cells (NS,R,O) Urine Bacteria (NS) Hyaline Casts (NS) Urine Mucus (NS) 08/04/17 08/04/17 08/04/17 Range/Units 13:20 13:40 15:00 WBC (4.5-12.0) X10-3/uL RBC (4.30-5.75) x10(6)uL Hgb (11.5-15.5) g/dL Hct (30.0-51.3) % MCV (80-96) fL MCH (27.7-33.6) pg MCHC (32.2-35.4) g/dL RDW (11.5-15.5) % Plt Count (125-369) X10(3)uL MPV (7.4-10.4) fL Add Manual Diff Neutrophils % (Manual) (46-82) % Lymphocytes % (Manual) (13-37) % Monocytes % (Manual) (4-12) % Giant Platelets PT (8.7-11.1) INR (0.89-1.13) Sodium (135-145) mmol/L Potassium (3.5-5.3) mmol/L Chloride (100-110) mmol/L Carbon Dioxide (21-32) mmol/L BUN (7-18) mg/dL Creatinine (0.70-1.30) mg/dL Est Cr Clr Drug Dosing mL/min Estimated GFR (MDRD) (>60) BUN/Creatinine Ratio (9-20) Glucose (80-116) mg/dL Calcium (8.6-10.2) mg/dL Troponin I 0.066 H (<0.017-0.056) ng/mL NT-Pro-B Natriuret Pep 3549 H* (<=125) pg/mL Urine Color Yellow (YELLOW) Urine Appearance Slightly cloudy (CLEAR) Urine pH 6.0 (5.0-6.5) Ur Specific [place] 1.020 (1.010-1.025) Urine Protein 500 H (NEGATIVE) mg/dL Urine Glucose (UA) Normal (NEGATIVE) mg/dL Urine Ketones 50 H (NEGATIVE) mg/dL Urine Occult Blood Negative (NEGATIVE) Urine Nitrite Negative (NEGATIVE) Urine Bilirubin Small H (NEGATIVE) Urine Urobilinogen 1 H (NEGATIVE) mg/dL Ur Leukocyte Esterase Negative (NEGATIVE) Urine RBC 0-5 (0) Urine WBC 0-5 (0) Ur Squamous Epith Cells Moderate H (NS,R,O) Urine Bacteria Moderate H (NS) Hyaline Casts Few H (NS) Urine Mucus Moderate H (NS) Meds: Medications Generic Name Dose Route Start Last Admin Trade Name Freq PRN Reason Stop Dose Admin Albuterol 2.5 mg 08/04/17 15:23 Proventil Neb Soln NEB Q4H PRN sob Discontinued Medications Generic Name Dose Route Start Last Admin Trade Name Freq PRN Reason Stop Dose Admin Albuterol/Ipratropium 3 ml 08/04/17 14:12 08/04/17 14:28 Duoneb 3.0-0.5 Mg/3 Ml NEB 08/04/17 14:13 3 ml ONETIME ONE Administration Clonidine HCl 0.1 mg 08/04/17 14:17 08/04/17 14:21 Catapres PO 08/04/17 14:18 Not Given ONETIME ONE Furosemide 20 mg 08/04/17 15:24 Lasix IVPUSH 08/04/17 15:25 ONETIME ONE Sodium Chloride 1,000 mls @ 125 mls/hr 08/04/17 12:30 Normal Saline IV ASDIRECTED ASTON Sodium Chloride 1,000 mls @ 999 mls/hr 08/04/17 14:14 08/04/17 14:05 Normal Saline IV 08/04/17 15:14 999 mls/hr .BOLUS ONE Administration Methylprednisolone Sodium Succinate 125 mg 08/04/17 14:12 08/04/17 14:27 Solu-Medrol IVPUSH 08/04/17 14:13 125 mg ONETIME ONE Administration Ondansetron HCl 8 mg 08/04/17 12:26 Zofran IV Q4H PRN Nausea/Vomiting Sodium Chloride 10 ml 08/04/17 12:26 Saline Flush FLUSH ASDIRECTED PRN Keep Vein Open Departure - Departure Time of Disposition: 12:48 Disposition: Left Without Being Seen 07 Condition: Fair Clinical Impression: COPD exacerbation, HTN, goal below 130/80, Cachexia - Discharge Information - My Orders Last 24 Hours: My Active Orders 08/04/17 12:26 Oxygen Therapy [RC] PRN Up With Assistance [RC] ASDIRECTED VTE/DVT Education [RC] Per Unit Routine Vital Signs [RC] Q4H 08/04/17 12:43 EKG Documentation Completion [RC] ASDIRECTED EKG 12 Lead [EK] Routine 08/04/17 12:44 CXR [Chest 1V Frontal] [CR] Stat 08/04/17 14:12 RT Aerosol Therapy [RC] ASDIRECTED 08/04/17 15:16 Patient Status [ADT] Routine Oxygen Therapy [RC] PRN Up With Assistance [RC] ASDIRECTED VTE/DVT Education [RC] Per Unit Routine Vital Signs [RC] Q4H Resuscitation Status Routine 08/04/17 Breakfast Heart Healthy Diet [DIET] - Assessment/Plan Last 24 Hours: My Active Orders 08/04/17 12:26 Oxygen Therapy [RC] PRN Up With Assistance [RC] ASDIRECTED VTE/DVT Education [RC] Per Unit Routine Vital Signs [RC] Q4H 08/04/17 12:43 EKG Documentation Completion [RC] ASDIRECTED EKG 12 Lead [EK] Routine 08/04/17 12:44 CXR [Chest 1V Frontal] [CR] Stat 08/04/17 14:12 RT Aerosol Therapy [RC] ASDIRECTED 08/04/17 15:16 Patient Status [ADT] Routine Oxygen Therapy [RC] PRN Up With Assistance [RC] ASDIRECTED VTE/DVT Education [RC] Per Unit Routine Vital Signs [RC] Q4H Resuscitation Status Routine 08/04/17 Breakfast Heart Healthy Diet [DIET]
[2017-08-04] MEDS ORDERED: methylPREDNISolone Sodium Succinate 125 MG/2 ML SDV IVPUSH ONE (14:12)
[2017-08-04] MEDS ORDERED: Albuterol/Ipratropium 3.0-0.5 MG/3 ML Neb Soln NEB ONE (14:12)
[2017-08-04] MEDS ORDERED: Sodium Chloride 0.9% 1,000 ML IV ONE (14:14)
[2017-08-04] MEDS ORDERED: cloNIDine 0.1 MG Tab PO ONE (14:17)
[2017-08-04] MEDS ORDERED: Albuterol 0.083% 2.5 MG/3 ML Neb Soln NEB PRN (15:23)
[2017-08-04] MEDS ORDERED: Furosemide 20 MG/2 ML VIAL IVPUSH ONE (15:24)
--- NOTE | 2017-08-04 16:18 | CR ---
INDICATION: Cough. CHEST: AP portable upright view of the chest 08/04/2017, compared with 2016 and 11/12/2015, revealed little interval change with no evidence of CHF or an active infiltrate or effusion. The heart did not appear enlarged. The lungs appear to be somewhat hyperaerated with slight flattening of diaphragm leaves, suggesting progressive COPD. The aorta is tortuous and calcified. Somewhat demineralized bony structures raise question of osteomalacia or osteoporosis - correlate clinically. IMPRESSION: 1. No acute process. 2. ASD aorta. 3. Possible demineralization, suggesting the possibility of osteoarthritis - correlate clinically. Report was given by phone to Dr. Taylor at 1411 hours, 08/04/2017. [facility]
[2017-08-04] MEDS: Sodium Chloride 0.9% 1,000 ML IV SCH (18:30)
[2017-08-04] MEDS ORDERED: Nitroglycerin 0.4 MG Tab.SL SL PRN (20:29)
[2017-08-04] MEDS ORDERED: Promethazine 25 MG Tab PO PRN (20:29)
[2017-08-04] MEDS ORDERED: Zolpidem 10 MG Tab PO ONE (20:29)
[2017-08-04] MEDS ORDERED: Loperamide 2 MG Cap PO PRN (20:29)
--- NOTE | 2017-08-04 20:35 | PCM.HP ---
H&P History of Present Illness - General Date of Service: 08/04/17 Admit Problem/Dx: Admission Diagnosis/Problem Admission Diagnosis/Problem COPD, Moderate chronic obstructive pulmonary disease Source of Information: Patient, Family, Old Records History Limitations: Reports: No Limitations - History of Present Illness Initial Comments - Free Text/Narative: 66-year-old male who was brought in because of weakness for about 4 days. He states that his brother brought him in because he was stumbling around and had no strength,could harldy walk.Lives alone. He's not been able to eat for at least 4 days has not had anything to drink either. He says he has no appetite. Food tastes bad.He has a result she's lost a lot of weight. 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 he has coronary artery disease with stents 7. His echocardiogram in October of this year showed an ejection fraction 75%. He does have a huge heart murmur. He did not have any chest pain today. . Has been well- controlled he has type 2 diabetes,on diet, and ah/o BPH, and history of coronary disease,recent admission in December at [facility] for STEMI. On further inquiry he does complain of feeling kind of sad or depressed ; he does not sleep well at night. Abdomen Pain Score (Numeric/FACES): 7 - Related Data Allergies/Adverse Reactions: Allergies Allergy/AdvReac Type Severity Reaction Status Date / Time acetaminophen Allergy Unknown Cannot Verified 03/16/17 10:09 Remember aspirin Allergy Unknown Cannot Verified 03/16/17 10:09 Remember Iodinated Contrast- Oral and Allergy Unknown Cannot Verified 03/16/17 10:09 IV Dye Remember lactase Allergy Unknown Nausea and Verified 03/16/17 10:09 Vomiting milk Allergy Unknown Cannot Verified 03/16/17 10:09 Remember NSAIDS (Non-Steroidal Allergy Unknown Nausea and Verified 03/16/17 10:09 Anti-Inflamma Vomiting raspberry Allergy Unknown Hives Verified 03/16/17 10:09 wool Allergy Itching Uncoded 03/16/17 10:09 Home Medications: Home Meds Aspirin [Mora Chewable Aspirin] 81 mg PO DAILY 11/12/15 [History] Famotidine 20 mg PO BID 11/12/15 [History] Gabapentin [Neurontin] 600 mg PO BEDTIME 11/12/15 [History] Methocarbamol 500 mg PO TID PRN 11/12/15 [History] Nitroglycerin [Nitrostat] 0.4 mg SL ASDIRECTED PRN 11/12/15 [History] Promethazine [Phenergan] 25 mg PO BID PRN 11/12/15 [History] Sucralfate [Carafate] 1 gm PO QIDACANDBED 11/12/15 [History] Tamsulosin [Flomax] 0.4 mg PO BEDTIME 11/12/15 [History] atorvaSTATin [Lipitor] 80 mg PO BEDTIME 11/12/15 [History] carBAMazepine [Carbamazepine] 200 mg PO BID 11/12/15 [History] hydrOXYzine Pamoate [Hydroxyzine Pamoate] 50 mg PO BID 11/12/15 [History] Albuterol [Ventolin HFA] 2 inh INH Q4H PRN 01/17/17 [History] Alendronate Sodium [Alendronate] 70 mg PO MO 01/17/17 [History] Budesonide/Formoterol Fumarate [Symbicort 80-4.5 Mcg Inhaler] 2 puff INH BID [History] Capsaicin [Zostrix 0.025% Crm] 1 applic TOP TID 01/17/17 [History] Ferrous Sulfate 325 mg PO BID 01/17/17 [History] Lisinopril 20 mg PO BID 01/17/17 [History] Magnesium Oxide 420 mg PO BID 01/17/17 [History] Multivitamin [Multi-Vitamin Daily] 1 tab PO DAILY 01/17/17 [History] Carvedilol [Coreg] 6.25 mg PO BID 08/04/17 [History] Cholecalciferol (Vitamin D3) [Vitamin D] 50,000 unit PO MO 08/04/17 [History] Cyanocobalamin (Vitamin B12) [Vitamin B12] 100 mcg PO DAILY 08/04/17 [History] Isosorbide Mononitrate [Imdur] 30 mg DAILY 08/04/17 [History] Loperamide [Imodium] 2 mg PO QID PRN 08/04/17 [History] Ondansetron [Zofran] 4 mg PO Q8H PRN 08/04/17 [History] Past Medical History HEENT History: Reports: Hard of Hearing, Impaired Vision, Other (See Below) Other HEENT History: dry eye syndrome, tinnitus, migraine headaches, balance problems, seizures Cardiovascular History: Reports: Arrhythmia, CAD, High Cholesterol, Hypertension , MT, Stents Other Cardiovascular History: MT x 2 Respiratory History: Reports: Asthma, COPD, SOB Other Respiratory History: hx tobacco dependence Gastrointestinal History: Reports: Hepatitis Other Gastrointestinal History: hx of hepatitis B & C, Vitamin B12 deficiency, Pernicious anemia, generalized anemia Genitourinary History: Reports: Prostate Disorder Musculoskeletal History: Reports: Back Pain, Chronic, Neck Pain, Chronic, Other (See Below) Other Musculoskeletal History: joint pain, bracial neuritis Neurological History: Reports: Migraines, Seizure, Other (See Below) Other Neuro History: brachial neuritis or radiculitis, unspecified epilespy, last seizure in 2006, anxiety, dementia Psychiatric History: Reports: Addiction, Anxiety, Bipolar, Dementia, Depression , PTSD, Schizophrenia, Other (See Below) Other Psychiatric History: cannabis and opioid dependence Endocrine/Metabolic History: Reports: Diabetes, Type II, Other (See Below) Other Endocrine/Metabolic History: Hepatitis B&C Hematologic History: Reports: Anemia, B12 Deficiency, Iron Deficiency Oncologic (Cancer) History: Reports: Prostate Dermatologic History: Reports: Cellulitis - Infectious Disease History Infectious Disease History: Reports: Hepatitis B, Hepatitis C - Past Surgical History Head Surgeries/Procedures: Reports: None Cardiovascular Surgical History: Reports: Coronary Artery Stent, Other (See Below) GI Surgical History: Reports: Appendectomy, Bariatric Procedure, Other (See Below) Other GI Surgeries/Procedures: stomach surgery "hole in stomach" Musculoskeletal Surgical History: Reports: Shoulder Surgery Social & Family History - Family History Family Medical History: Unobtainable Oncologic: Reports: Lung - Tobacco Use Smoking Status *Q: Current Every Day Smoker Years of Tobacco use: 50 Packs/Tins Daily: 0.1 Used Tobacco, but Quit: No Second Hand Smoke Exposure: No - Caffeine Use Caffeine Use: Reports: Coffee Other Caffeine Use: Pt drinks 2 cups a day. - Recreational Drug Use Recreational Drug Use: No Recreational Drug Type: Reports: Marijuana/Hashish Other Recreational Drug Type: has been many years since using steet drugs uses pot frequntly smokes and edibles Recreational Drug Use Frequency: Daily H&P Review of Systems - Review of Systems: Review Of Systems: ROS reveals no pertinent complaints other than HPI. Exam - Exam Exam: See Below - Vital Signs Vital Signs: Last Vital Signs Temp 97.1 F 08/04/17 15:52 Pulse 93 08/04/17 15:52 Resp 18 08/04/17 15:52 BP 140/92 H 08/04/17 15:52 Pulse Ox 89 L 08/04/17 16:00 Weight: 49.578 kg - Exam Quality Assessment: Supplemental Oxygen, Other (cachectic) General: Alert, Oriented HEENT: PERRLA Neck: Supple, Trachea Midline. No: Thyromegaly Lungs: Clear to Auscultation, Decreased Breath Sounds Cardiovascular: Regular Rate, Systolic Murmur GI/Abdominal Exam: Normal Bowel Sounds (Male) Exam: Deferred Rectal (Males) Exam: Deferred Back Exam: Normal Inspection Extremities: Normal Inspection Skin: Warm Neurological: Cranial Nerves Intact, Reflexes Equal Bilateral Neuro Extensive - Mental Status: Alert, Oriented x3, Normal Mood/Affect, Normal Cognition Neuro Extensive - Motor, Sensory, Reflexes: CN II-XII Intact, Normal Gait, Normal Reflexes Psychiatric: Alert, Normal Affect, Normal Mood - Patient Data Result Diagrams: 08/04/17 13:20 08/04/17 13:20 Imaging Impressions Last 24 hrs: CXR-?COPD *Q Meaningful Use (ADM) - VTE *Q VTE Criteria *Q: - Stroke *Q Stroke Criteria *Q: - AMI *Q AMI Criteria *Q: - Problem List (1) COPD exacerbation SNOMED Code(s): 158621031915052 ICD Code: J44.1 - CHRONIC OBSTRUCTIVE PULMONARY DISEASE W (ACUTE) EXACERBATION Status: Acute Current Visit: Yes (2) Cachexia SNOMED Code(s): 830649358 ICD Code: R64 - CACHEXIA Status: Acute Current Visit: Yes (3) Anorexia SNOMED Code(s): 56522420 ICD Code: R63.0 - ANOREXIA Status: Acute Current Visit: Yes (4) CAD (coronary artery disease) SNOMED Code(s): 80460080 ICD Code: I25.10 - ATHSCL HEART DISEASE OF [place] CORONARY ARTERY W/O ANG PCTRS Status: Acute Current Visit: Yes Qualifiers: Coronary Disease-Associated Artery/Lesion type: bypass graft (5) Insomnia SNOMED Code(s): 348764632 ICD Code: G47.00 - INSOMNIA, UNSPECIFIED Status: Acute Current Visit: Yes Qualifiers: Insomnia type: primary Qualified Code(s): F51.01 - Primary insomnia (6) HTN, goal below 130/80 SNOMED Code(s): 31414608 ICD Code: I10 - ESSENTIAL (PRIMARY) HYPERTENSION Status: Acute Current Visit: Yes (7) Current smoker SNOMED Code(s): 17932556 ICD Code: F17.200 - NICOTINE DEPENDENCE, UNSPECIFIED, UNCOMPLICATED Status : Chronic Current Visit: No (8) Dehydration SNOMED Code(s): 20582646 ICD Code: E86.0 - DEHYDRATION Status: Acute Current Visit: Yes (9) Generalized weakness SNOMED Code(s): 16792072 ICD Code: R53.1 - WEAKNESS Status: Acute Current Visit: Yes (10) H/O: stroke SNOMED Code(s): 185250299 ICD Code: Z86.73 - PRSNL HX OF TIA (TIA), AND CEREB INFRC W/O RESID DEFICITS Status: Acute Current Visit: Yes (11) H/O drug abuse SNOMED Code(s): 103913469 ICD Code: Z87.898 - PERSONAL HISTORY OF OTHER SPECIFIED CONDITIONS Status: Acute Current Visit: Yes (12) Cannabis abuse SNOMED Code(s): 93188912 ICD Code: F12.10 - CANNABIS ABUSE, UNCOMPLICATED Status: Acute Current Visit: Yes Problem List Initiated/Reviewed/Updated: Yes Orders Last 24hrs: Active Orders 24 hr Category Date Time Status RT Aerosol Therapy [RC] ASDIRECTED Care 08/04/17 20:33 Ordered CBC WITH AUTO DIFF [HEME] AM Lab 08/05/17 05:11 Ordered COMPREHENSIVE METABOLIC PN,CMP [CHEM] AM Lab 08/05/17 05:11 Ordered PRO B-TYPE NATRIUR PEPT,BNPPRO [CHEM] DAILY Lab 08/05/17 05:11 Ordered TROPONIN I [CHEM] AM Lab 08/05/17 05:11 Ordered Albuterol [Proventil Neb Soln] Med 08/04/17 15:23 Active 2.5 mg NEB Q4H PRN Albuterol/Ipratropium [DuoNeb 3.0-0.5 MG/3 ML] Med 08/04/17 20:32 Ordered 3 ml NEB Q6H PRN Alendronate [Fosamax] Med 08/10/17 20:29 Ordered 70 mg PO MO Aspirin Med 08/05/17 09:00 Ordered 81 mg PO DAILY Azithromycin [Zithromax] 500 mg Med 08/04/17 20:45 Ordered Sodium Chloride 0.9% [Normal Saline] 250 ml IV Q24H Budesonide/Formoterol Fumarate [Symbicort 80-4.5 Mcg Med 08/04/17 21:00 Ordered Inhaler] 2 puff INH BID Capsaicin [Zostrix 0.025% Crm] Med 08/04/17 21:00 Ordered 1 applic TOP TID Carvedilol [Coreg] Med 08/04/17 21:00 Ordered 6.25 mg PO BID Cholecalciferol (Vitamin D3) [Vitamin D3] Med 08/10/17 20:29 Ordered 50,000 unit PO MO Cyanocobalamin (Vitamin B12) [Vitamin B12] Med 08/05/17 09:00 Ordered 100 mcg PO DAILY Famotidine [Pepcid] Med 08/04/17 21:00 Ordered 20 mg PO BID Ferrous Sulfate Med 08/04/17 21:00 Ordered 325 mg PO BID Gabapentin [Neurontin] Med 08/04/17 21:00 Ordered 600 mg PO BEDTIME Isosorbide Mononitrate [Imdur] Med 08/05/17 09:00 Ordered 30 mg PO DAILY Lisinopril [Prinivil] Med 08/04/17 21:00 Ordered 20 mg PO BID Loperamide [Imodium] Med 08/04/17 20:29 Ordered 2 mg PO QID PRN Magnesium Oxide [Magnesium Oxide] Med 08/04/17 21:00 Ordered 420 mg PO BID Methocarbamol [Robaxin] Med 08/04/17 20:29 Ordered 500 mg PO TID PRN Multivitamins [Tab-A-Inez] Med 08/05/17 09:00 Ordered 1 tab PO DAILY Nitroglycerin [Nitrostat] Med 08/04/17 20:29 Ordered 0.4 mg SL ASDIRECTED PRN Ondansetron [Zofran] Med 08/04/17 20:29 Ordered 4 mg PO Q8H PRN Promethazine [Phenergan] Med 08/04/17 20:29 Ordered 25 mg PO BID PRN Sodium Chloride 0.9% [Normal Saline] 1,000 ml Med 08/04/17 18:30 Active IV ASDIRECTED Sucralfate [Carafate] Med 08/04/17 21:00 Ordered 1 gm PO QIDACANDBED Tamsulosin [Flomax] Med 08/04/17 21:00 Ordered 0.4 mg PO BEDTIME Zolpidem [Ambien] Med 08/04/17 20:29 Once 5 mg PO ONETIME ONE atorvaSTATin [Lipitor] Med 08/04/17 21:00 Ordered 80 mg PO BEDTIME carBAMazepine [TEGretol Tab] Med 08/04/17 21:00 Ordered 200 mg PO BID hydrOXYzine Pamoate [Vistaril] Med 08/04/17 21:00 Ordered 50 mg PO BID methylPREDNISolone Sod Succ [Solu-MEDROL] Med 08/04/17 20:45 Ordered 125 mg IVPUSH Q12H Medication Orders Albuterol (Proventil Neb Soln) 2.5 mg NEB Q4H PRN PRN Reason: sob Albuterol/Ipratropium (Duoneb 3.0-0.5 Mg/3 Ml) 3 ml NEB Q6H PRN PRN Reason: Wheezing Alendronate Sodium (Fosamax) 70 mg PO MO [facility] Aspirin (Aspirin) 81 mg PO DAILY [facility] Atorvastatin Calcium (Lipitor) 80 mg PO BEDTIME [facility] Carbamazepine (Tegretol Tab) 200 mg PO BID [facility] Carvedilol (Coreg) 6.25 mg PO BID [facility] Cyanocobalamin (Vitamin B12) 100 mcg PO DAILY [facility] Famotidine (Pepcid) 20 mg PO BID [facility] Ferrous Sulfate (Ferrous Sulfate) 325 mg PO BID [facility] Gabapentin (Neurontin) 600 mg PO BEDTIME [facility] Hydroxyzine Pamoate (Vistaril) 50 mg PO BID [facility] Sodium Chloride (Normal Saline) 1,000 mls @ 125 mls/hr IV ASDIRECTED [facility] Last Admin: 08/04/17 18:30 Dose: 125 mls/hr Azithromycin 500 mg/ Sodium (Chloride) 250 mls @ 250 mls/hr IV Q24H [facility] Isosorbide Mononitrate (Imdur) 30 mg PO DAILY [facility] Lisinopril (Prinivil) 20 mg PO BID [facility] Loperamide HCl (Imodium) 2 mg PO QID PRN PRN Reason: LOOSE STOOLS Methocarbamol (Robaxin) 500 mg PO TID PRN PRN Reason: Pain Methylprednisolone Sodium Succinate (Solu-Medrol) 125 mg IVPUSH Q12H [facility] Multivitamins/Minerals/Vitamin C (Tab-A-Inez) 1 tab PO DAILY [facility] Nitroglycerin (Nitrostat) 0.4 mg SL ASDIRECTED PRN PRN Reason: Pain Non-Formulary Medication (Budesonide/Formoterol Fumarate [Symbicort 80-4.5 Mcg Inhaler]) 2 puff INH BID [facility] Non-Formulary Medication (Capsaicin [Zostrix 0.025% Crm]) 1 applic TOP TID [facility] Non-Formulary Medication (Cholecalciferol (Vitamin D3) [Vitamin D3]) 50,000 unit PO MO [facility] Non-Formulary Medication (Magnesium Oxide [Magnesium Oxide]) 420 mg PO BID [facility] Non-Formulary Medication (Ondansetron [Zofran]) 4 mg PO Q8H PRN PRN Reason: Nausea Promethazine HCl (Phenergan) 25 mg PO BID PRN PRN Reason: Nausea Sucralfate (Carafate) 1 gm PO QIDACANDBED [facility] Tamsulosin HCl (Flomax) 0.4 mg PO BEDTIME [facility] Zolpidem Tartrate (Ambien) 5 mg PO ONETIME ONE Stop: 08/04/17 20:30 Assessment/Plan Comment:: We'll admit for rehydration.Reason for weakness, loss of weight, anorexia still mystery..He also has a history of gastrectomy and partial duodenectomy because of abdominal trauma several years ago,but I also feel that he might have depression. I've given him Ambien to help him sleep tonight. I will ask physical and outpatient therapy for evaluation tomorrow.Dietary consult in AM.We 'll resume his home medications. His troponin was slightly high,and I'll plan to repeat another one tomorrow morning. Meantime maximize medical therapy with indoor aspirin and HTN control.
[2017-08-04] MEDS ORDERED: Ondansetron 4 MG Tab.DIS PO PRN (20:49)
[2017-08-04] MEDS ORDERED: Formoterol/Mometasone 100-5 MCG 8.8 GM Inhaler IH SCH (21:00)
[2017-08-04] MEDS ORDERED: Gabapentin 100 MG Cap PO SCH (21:00)
[2017-08-04] MEDS ORDERED: Non-Formulary Medication 1 Each (Magnesium Oxide [Magnesium Oxide] 420 MG) PO SCH (21:00)
[2017-08-04] MEDS ORDERED: CAPSAICIN TOP SCH ×2 (21:00→21:30)
[2017-08-04] MEDS ORDERED: Azithromycin 500 MG in Sodium Chloride 0.9% 250 ML IV SCH (21:00)
[2017-08-04] MEDS ORDERED: carBAMazepine 200 MG Tab PO SCH (21:00)
[2017-08-04] MEDS ORDERED: carBAMazepine 100 MG Tab.Chew ONE (21:01)
[2017-08-04] MEDS ORDERED: Gabapentin 300 MG Cap ONE (21:04)
[2017-08-04] MEDS ORDERED: methylPREDNISolone Sodium Succinate 125 MG/2 ML SDV ONE (21:14)
[2017-08-04] MEDS ORDERED: Gabapentin 300 MG Cap PO SCH (21:45)
[2017-08-04] MEDS: Sucralfate 1 GM Tab PO SCH (21:54)
[2017-08-04] MEDS: carBAMazepine 100 MG Tab.Chew PO SCH (21:55)
[2017-08-04] MEDS: Carvedilol 6.25 MG Tab PO SCH (21:58)
[2017-08-04] MEDS: Ferrous Sulfate 325 MG Tab PO SCH (22:00)
[2017-08-04] MEDS ORDERED: atorvaSTATin 40 MG Tab ONE (22:00)
[2017-08-04] MEDS: Famotidine 20 MG Tab PO SCH (22:00)
[2017-08-04] MEDS: Lisinopril 20 MG Tab PO SCH (22:01)
[2017-08-04] MEDS: atorvaSTATin 40 MG Tab PO SCH (22:01)
[2017-08-04] MEDS: Tamsulosin 0.4 MG Cap.ER PO SCH (22:02)
[2017-08-04] MEDS: Magnesium Oxide 400 MG Tab PO SCH (22:06)
[2017-08-04] MEDS ORDERED: CAPSAICIN 0.025% CREAM TOP SCH (22:30)
[2017-08-04] MEDS: Methocarbamol 500 MG Tab PO PRN (23:35)
[2017-08-05] MEDS: methylPREDNISolone Sodium Succinate 125 MG/2 ML SDV IVPUSH SCH ×2 (01:21→15:05)
[2017-08-05] MEDS: Sodium Chloride 0.9% 1,000 ML IV SCH (03:06)
[2017-08-05] MEDS: Carvedilol 6.25 MG Tab PO SCH ×2 (08:30→17:29)
[2017-08-05] MEDS: Isosorbide Mononitrate 30 MG Tab.ER PO SCH (08:30)
[2017-08-05] MEDS: Sucralfate 1 GM Tab PO SCH (08:30)
[2017-08-05] MEDS: Aspirin 81 MG Tab.Chew PO SCH (08:30)
[2017-08-05] MEDS: Magnesium Oxide 400 MG Tab PO SCH ×2 (08:31→20:27)
[2017-08-05] MEDS: Lisinopril 20 MG Tab PO SCH ×2 (08:31→20:26)
[2017-08-05] MEDS: Famotidine 20 MG Tab PO SCH ×2 (08:31→20:27)
[2017-08-05] MEDS: carBAMazepine 100 MG Tab.Chew PO SCH ×2 (08:31→20:28)
[2017-08-05] MEDS: Multivitamin Tab PO SCH (08:37)
[2017-08-05] MEDS: Ferrous Sulfate 325 MG Tab PO SCH ×2 (08:37→20:27)
[2017-08-05] MEDS: Formoterol/Mometasone 100-5 MCG 8.8 GM Inhaler IH SCH ×2 (08:42→20:17)
[2017-08-05] MEDS ORDERED: Cyanocobalamin (Vitamin B12) 100 MCG Tab PO SCH (09:00)
[2017-08-05] MEDS ORDERED: Capsaicin 0.025% Crm 60 GM Tube TOP SCH (09:00)
--- NOTE | 2017-08-05 09:00 | PCM.PN ---
- General Info Date of Service: 08/05/17 Subjective Update: Patient slept well, and feels better this morning. He still has nausea and some weakness. His appetite is still decreased. Has any fever chills,no chest pain. - Review of Systems General: Reports: Weakness HEENT: Reports: No Symptoms Pulmonary: Reports: Shortness of Breath, Sputum Cardiovascular: Reports: No Symptoms Gastrointestinal: Reports: Nausea. Denies: Diarrhea Musculoskeletal: Reports: No Symptoms Skin: Reports: No Symptoms - Patient Data Vitals - Most Recent: Last Vital Signs Temp 98.6 F 08/05/17 07:36 Pulse 69 08/05/17 08:30 Resp 19 08/05/17 07:36 BP 157/75 H 08/05/17 08:31 Pulse Ox 91 L 08/05/17 07:36 Weight - Most Recent: 51.12 kg I&O - Last 24 Hours: Intake & Output 08/04/17 08/05/17 08/05/17 22:59 06:59 14:59 Intake Total 1207 1508 Output Total 150 300 Balance 1057 1208 Lab Results Last 24 Hours: Laboratory Results - last 24 hr 08/05/17 08/05/17 08/05/17 Range/Units 07:15 07:15 07:15 WBC 4.9 (4.5-12.0) X10-3/uL RBC 4.56 (4.30-5.75) x10(6)uL Hgb 14.1 (11.5-15.5) g/dL Hct 39.9 D (30.0-51.3) % MCV 87.4 (80-96) fL MCH 30.9 (27.7-33.6) pg MCHC 35.3 (32.2-35.4) g/dL RDW 14.3 (11.5-15.5) % Plt Count 175 (125-369) X10(3)uL MPV 8.6 (7.4-10.4) fL Neut % (Auto) 90.6 H (46-82) % Lymph % (Auto) 6.4 L (13-37) % [place] % (Auto) 1.8 L (4-12) % Eos % (Auto) 0 L (1.0-5.0) % Baso % (Auto) 1 (0-2) % Neut # (Auto) 4.4 (1.6-8.3) # Lymph # (Auto) 0.3 L (0.6-5.0) # [place] # (Auto) 0.1 (0.0-1.3) # Eos # (Auto) 0.0 (0.0-0.8) # Baso # (Auto) 0.1 (0.0-0.2) # ESR 5 (0-15) mm/hr Sodium 134 L (135-145) mmol/L Potassium 4.6 (3.5-5.3) mmol/L Chloride 100 D (100-110) mmol/L Carbon Dioxide 29 (21-32) mmol/L BUN 23 H (7-18) mg/dL Creatinine 0.8 (0.70-1.30) mg/dL Est Cr Clr Drug Dosing 67.45 mL/min Estimated GFR (MDRD) > 60 (>60) BUN/Creatinine Ratio 28.8 H (9-20) Glucose 179 H (80-116) mg/dL Hemoglobin A1c (4.5-6.2) % Calcium 8.3 L (8.6-10.2) mg/dL Magnesium 1.6 L (1.8-2.5) mg/dL Total Bilirubin 0.3 (0.1-1.3) mg/dL AST 20 (5-25) IU/L ALT 13 (12-36) U/L Alkaline Phosphatase 103 (56-112) IU/L Creatine Kinase 61 (60-160) IU/L CK-MB (CK-2) 3.2 (0.5-5.0) ng/mL Troponin I 0.037 (<0.017-0.056) ng/mL NT-Pro-B Natriuret Pep 3452 H* (<=125) pg/mL Total Protein 6.2 (6.0-8.0) g/dL Albumin 2.9 L (3.2-4.6) g/dL Globulin 3.3 g/dL Albumin/Globulin Ratio 0.9 TSH, Ultra Sensitive 0.23 L (0.36-3.74) IU/mL 08/05/17 Range/Units 07:15 WBC (4.5-12.0) X10-3/uL RBC (4.30-5.75) x10(6)uL Hgb (11.5-15.5) g/dL Hct (30.0-51.3) % MCV (80-96) fL MCH (27.7-33.6) pg MCHC (32.2-35.4) g/dL RDW (11.5-15.5) % Plt Count (125-369) X10(3)uL MPV (7.4-10.4) fL Neut % (Auto) (46-82) % Lymph % (Auto) (13-37) % [place] % (Auto) (4-12) % Eos % (Auto) (1.0-5.0) % Baso % (Auto) (0-2) % Neut # (Auto) (1.6-8.3) # Lymph # (Auto) (0.6-5.0) # [place] # (Auto) (0.0-1.3) # Eos # (Auto) (0.0-0.8) # Baso # (Auto) (0.0-0.2) # ESR (0-15) mm/hr Sodium (135-145) mmol/L Potassium (3.5-5.3) mmol/L Chloride (100-110) mmol/L Carbon Dioxide (21-32) mmol/L BUN (7-18) mg/dL Creatinine (0.70-1.30) mg/dL Est Cr Clr Drug Dosing mL/min Estimated GFR (MDRD) (>60) BUN/Creatinine Ratio (9-20) Glucose (80-116) mg/dL Hemoglobin A1c 6.0 (4.5-6.2) % Calcium (8.6-10.2) mg/dL Magnesium (1.8-2.5) mg/dL Total Bilirubin (0.1-1.3) mg/dL AST (5-25) IU/L ALT (12-36) U/L Alkaline Phosphatase (56-112) IU/L Creatine Kinase (60-160) IU/L CK-MB (CK-2) (0.5-5.0) ng/mL Troponin I (<0.017-0.056) ng/mL NT-Pro-B Natriuret Pep (<=125) pg/mL Total Protein (6.0-8.0) g/dL Albumin (3.2-4.6) g/dL Globulin g/dL Albumin/Globulin Ratio TSH, Ultra Sensitive (0.36-3.74) IU/mL Med Orders - Current: Current Medications Albuterol (Proventil Neb Soln) 2.5 mg NEB Q4H PRN PRN Reason: sob Albuterol/Ipratropium (Duoneb 3.0-0.5 Mg/3 Ml) 3 ml NEB Q6H PRN PRN Reason: Wheezing Alendronate Sodium (Fosamax) 70 mg PO Mo@0600 [facility] Aspirin (Aspirin) 81 mg PO DAILY [facility] Last Admin: 08/05/17 08:30 Dose: 81 mg Atorvastatin Calcium (Lipitor) 80 mg PO BEDTIME [facility] Last Admin: 08/04/17 22:01 Dose: 80 mg Carbamazepine (Tegretol) 200 mg PO BID [facility] Last Admin: 08/05/17 08:31 Dose: 200 mg Carvedilol (Coreg) 6.25 mg PO BIDMEALS [facility] Last Admin: 08/05/17 08:30 Dose: 6.25 mg Cyanocobalamin (Vitamin B12) 100 mcg PO DAILY [facility] Last Admin: 08/05/17 08:31 Dose: Not Given Famotidine (Pepcid) 20 mg PO BID [facility] Last Admin: 08/05/17 08:31 Dose: 20 mg Ferrous Sulfate (Ferrous Sulfate) 325 mg PO BID [facility] Last Admin: 08/05/17 08:37 Dose: Not Given Gabapentin (Neurontin) 600 mg PO BEDTIME [facility] Hydroxyzine Pamoate (Vistaril) 50 mg PO BID [facility] Last Admin: 08/05/17 08:31 Dose: 50 mg Sodium Chloride (Normal Saline) 1,000 mls @ 125 mls/hr IV ASDIRECTED [facility] Last Admin: 08/05/17 03:06 Dose: 125 mls/hr Azithromycin 500 mg/ Sodium (Chloride) 250 mls @ 250 mls/hr IV Q24H [facility] Last Admin: 08/04/17 22:02 Dose: 250 mls/hr Isosorbide Mononitrate (Imdur) 30 mg PO DAILY [facility] Last Admin: 08/05/17 08:30 Dose: 30 mg Lisinopril (Prinivil) 20 mg PO BID [facility] Last Admin: 08/05/17 08:31 Dose: 20 mg Loperamide HCl (Imodium) 2 mg PO QID PRN PRN Reason: LOOSE STOOLS Magnesium Oxide (Magnesium Oxide) 400 mg PO BID [facility] Last Admin: 08/05/17 08:31 Dose: 400 mg Methocarbamol (Robaxin) 500 mg PO TID PRN PRN Reason: Pain Last Admin: 08/04/17 23:35 Dose: 500 mg Methylprednisolone Sodium Succinate (Solu-Medrol) 125 mg IVPUSH Q12H [facility] Last Admin: 08/05/17 01:21 Dose: 125 mg Mometasone Furoate/Formoterol Fumar (Dulera 100-5 Mcg) 2 puff IH BID [facility] Last Admin: 08/05/17 08:42 Dose: 2 puff Multivitamins/Minerals/Vitamin C (Tab-A-Inez) 1 tab PO DAILY [facility] Last Admin: 08/05/17 08:37 Dose: 1 tab Nitroglycerin (Nitrostat) 0.4 mg SL ASDIRECTED PRN PRN Reason: Pain Non-Formulary Medication (Cholecalciferol (Vitamin D3) [Vitamin D3]) 50,000 unit PO MO [facility] Ondansetron HCl (Zofran Odt) 4 mg PO Q8H PRN PRN Reason: Nausea Promethazine HCl (Phenergan) 25 mg PO BID PRN PRN Reason: Nausea Sucralfate (Carafate) 1 gm PO QIDACANDBED [facility] Last Admin: 08/05/17 08:30 Dose: 1 gm Tamsulosin HCl (Flomax) 0.4 mg PO BEDTIME [facility] Last Admin: 08/04/17 22:02 Dose: 0.4 mg Discontinued Medications Albuterol/Ipratropium (Duoneb 3.0-0.5 Mg/3 Ml) 3 ml NEB ONETIME ONE Stop: 08/04/17 14:13 Last Admin: 08/04/17 14:28 Dose: 3 ml Atorvastatin Calcium (Lipitor) Confirm Administered Dose 40 mg .ROUTE .STK-MED ONE Stop: 08/04/17 22:01 Last Admin: 08/04/17 22:39 Dose: Not Given Capsaicin (Capzasin-P 0.0375% Crm) 0 gm TOP TID [facility] Last Admin: 08/04/17 22:38 Dose: 1 applic Capsaicin (Zostrix 0.025% Crm) 0 gm TOP TID [facility] Last Admin: 08/05/17 08:35 Dose: Not Given Carbamazepine (Tegretol Tab) 200 mg PO BID [facility] Last Admin: 08/05/17 01:12 Dose: Not Given Carbamazepine (Tegretol) Confirm Administered Dose 200 mg .ROUTE .STK-MED ONE Stop: 08/04/17 21:02 Last Admin: 08/04/17 22:39 Dose: Not Given Clonidine HCl (Catapres) 0.1 mg PO ONETIME ONE Stop: 08/04/17 14:18 Last Admin: 08/04/17 14:21 Dose: Not Given Furosemide (Lasix) 20 mg IVPUSH ONETIME ONE Stop: 08/04/17 15:25 Last Admin: 08/04/17 16:57 Dose: 20 mg Gabapentin (Neurontin) 600 mg PO BEDTIME [facility] Last Admin: 08/05/17 01:11 Dose: Not Given Gabapentin (Neurontin) Confirm Administered Dose 600 mg .ROUTE .STK-MED ONE Stop: 08/04/17 21:05 Last Admin: 08/04/17 22:38 Dose: Not Given Gabapentin (Neurontin) 600 mg PO BEDTIME [facility] Last Admin: 08/04/17 21:54 Dose: 600 mg Sodium Chloride (Normal Saline) 1,000 mls @ 125 mls/hr IV ASDIRECTED [facility] Sodium Chloride (Normal Saline) 1,000 mls @ 999 mls/hr IV .BOLUS ONE Stop: 08/04/17 15:14 Last Admin: 08/04/17 14:05 Dose: 999 mls/hr Methylprednisolone Sodium Succinate (Solu-Medrol) 125 mg IVPUSH ONETIME ONE Stop: 08/04/17 14:13 Last Admin: 08/04/17 14:27 Dose: 125 mg Methylprednisolone Sodium Succinate (Solu-Medrol) Confirm Administered Dose 125 mg .ROUTE .STK-MED ONE Stop: 08/04/17 21:15 Last Admin: 08/04/17 22:37 Dose: Not Given Mometasone Furoate/Formoterol Fumar (Dulera 100-5 Mcg) 2 puff IH BID [facility] Last Admin: 08/04/17 21:54 Dose: Not Given Non-Formulary Medication (Capsaicin [Zostrix 0.025% Crm]) 1 applic TOP TID [facility] Last Admin: 08/05/17 01:10 Dose: Not Given Non-Formulary Medication (Magnesium Oxide [Magnesium Oxide]) 420 mg PO BID [facility] Last Admin: 08/05/17 01:11 Dose: Not Given Capsaicin 0.025% (Cream) 0 each TOP TID [facility] Last Admin: 08/04/17 22:30 Dose: 1 each Ondansetron HCl (Zofran) 8 mg IV Q4H PRN PRN Reason: Nausea/Vomiting Sodium Chloride (Saline Flush) 10 ml FLUSH ASDIRECTED PRN PRN Reason: Keep Vein Open Zolpidem Tartrate (Ambien) 5 mg PO ONETIME ONE Stop: 08/04/17 20:30 Last Admin: 08/04/17 22:03 Dose: 5 mg - Exam Quality Assessment: Supplemental Oxygen General: Alert, Oriented Neck: Supple Lungs: Decreased Breath Sounds Cardiovascular: Regular Rate, Murmurs Neurological: No New Focal Deficit Psy/Mental Status: Alert, Normal Affect, Normal Mood - Problem List & Annotations (1) COPD exacerbation SNOMED Code(s): 858852762241718 Code(s): J44.1 - CHRONIC OBSTRUCTIVE PULMONARY DISEASE W (ACUTE) EXACERBATION Status: Acute Current Visit: Yes (2) Cachexia SNOMED Code(s): 771848887 Code(s): R64 - CACHEXIA Status: Acute Current Visit: Yes (3) Anorexia SNOMED Code(s): 48641627 Code(s): R63.0 - ANOREXIA Status: Acute Current Visit: Yes (4) CAD (coronary artery disease) SNOMED Code(s): 71147511 Code(s): I25.10 - ATHSCL HEART DISEASE OF [place] CORONARY ARTERY W/O ANG PCTRS Status: Acute Current Visit: Yes Qualifiers: Coronary Disease-Associated Artery/Lesion type: bypass graft (5) Insomnia SNOMED Code(s): 642594861 Code(s): G47.00 - INSOMNIA, UNSPECIFIED Status: Acute Current Visit: Yes Qualifiers: Insomnia type: primary Qualified Code(s): F51.01 - Primary insomnia (6) HTN, goal below 130/80 SNOMED Code(s): 67430709 Code(s): I10 - ESSENTIAL (PRIMARY) HYPERTENSION Status: Acute Current Visit: Yes (7) Current smoker SNOMED Code(s): 07028001 Code(s): F17.200 - NICOTINE DEPENDENCE, UNSPECIFIED, UNCOMPLICATED Status: Chronic Current Visit: No (8) Dehydration SNOMED Code(s): 74600803 Code(s): E86.0 - DEHYDRATION Status: Acute Current Visit: Yes (9) Generalized weakness SNOMED Code(s): 93593547 Code(s): R53.1 - WEAKNESS Status: Acute Current Visit: Yes (10) H/O: stroke SNOMED Code(s): 723283849 Code(s): Z86.73 - PRSNL HX OF TIA (TIA), AND CEREB INFRC W/O RESID DEFICITS Status: Acute Current Visit: Yes (11) H/O drug abuse SNOMED Code(s): 714023002 Code(s): Z87.898 - PERSONAL HISTORY OF OTHER SPECIFIED CONDITIONS Status: Acute Current Visit: Yes (12) Cannabis abuse SNOMED Code(s): 31667429 Code(s): F12.10 - CANNABIS ABUSE, UNCOMPLICATED Status: Acute Current Visit: Yes (13) Falls frequently SNOMED Code(s): 598004016 Code(s): R29.6 - REPEATED FALLS Status: Acute Current Visit: Yes (14) Proteinuria SNOMED Code(s): 43449277 Code(s): R80.9 - PROTEINURIA, UNSPECIFIED Status: Acute Current Visit: Yes (15) Hyperthyroidism SNOMED Code(s): 64424943 Code(s): E05.90 - THYROTOXICOSIS, UNSP WITHOUT THYROTOXIC CRISIS OR STORM Status: Acute Current Visit: Yes (16) S/P gastrectomy SNOMED Code(s): 244478363 Code(s): Z90.3 - ACQUIRED ABSENCE OF STOMACH [PART OF] Status: Acute Current Visit: Yes - Problem List Review Problem List Initiated/Reviewed/Updated: Yes - My Orders Last 24 Hours: My Active Orders 08/04/17 20:29 Loperamide [Imodium] 2 mg PO QID PRN Methocarbamol [Robaxin] 500 mg PO TID PRN Nitroglycerin [Nitrostat] 0.4 mg SL ASDIRECTED PRN Promethazine [Phenergan] 25 mg PO BID PRN 08/04/17 20:32 Albuterol/Ipratropium [DuoNeb 3.0-0.5 MG/3 ML] 3 ml NEB Q6H PRN 12/05/17 20:33 RT Aerosol Therapy [RC] ASDIRECTED 08/04/17 20:49 Ondansetron [Zofran ODT] 4 mg PO Q8H PRN 08/04/17 20:56 Consult to Public Health Professor [CONS] Routine OT Evaluation and Treatment [CONS] Routine PT Evaluation and Treatment [CONS] Stat 08/04/17 21:00 Azithromycin [Zithromax] 500 mg Sodium Chloride 0.9% [Normal Saline] 250 ml IV Q24H Carvedilol [Coreg] 6.25 mg PO BIDMEALS Famotidine [Pepcid] 20 mg PO BID Ferrous Sulfate 325 mg PO BID Lisinopril [Prinivil] 20 mg PO BID Sucralfate [Carafate] 1 gm PO QIDACANDBED Tamsulosin [Flomax] 0.4 mg PO BEDTIME atorvaSTATin [Lipitor] 80 mg PO BEDTIME hydrOXYzine Pamoate [Vistaril] 50 mg PO BID 08/04/17 21:30 Magnesium Oxide 400 mg PO BID 08/04/17 21:45 carBAMazepine [TEGretol] 200 mg PO BID 08/05/17 02:00 methylPREDNISolone Sod Succ [Solu-MEDROL] 125 mg IVPUSH Q12H 08/05/17 07:46 Mometasone/Formoterol [Dulera 100-5 MCG] 2 puff IH BID 08/05/17 08:54 FREE T3 [REF] Routine FREE T4 [REF] Routine 08/05/17 09:00 Aspirin 81 mg PO DAILY Cyanocobalamin (Vitamin B12) [Vitamin B12] 100 mcg PO DAILY Isosorbide Mononitrate [Imdur] 30 mg PO DAILY Multivitamins [Tab-A-Inez] 1 tab PO DAILY 08/05/17 21:00 Gabapentin [Neurontin] 600 mg PO BEDTIME 08/06/17 05:11 CBC WITH AUTO DIFF [HEME] AM COMPREHENSIVE METABOLIC PN,CMP [CHEM] AM 08/10/17 06:00 Alendronate [Fosamax] 70 mg PO Mo@0600 08/10/17 20:29 Cholecalciferol (Vitamin D3) [Vitamin D3] 50,000 unit PO MO - Plan Plan:: I discontinued some of his medications because I feel that he has polypharmacy. Vitamin B12, sucralfate, Vistaril have all been discontinued. I will wait for physical and occupational therapy today. Continue IV Solumedrol and SVNs. I ordered a CT of the chest to further evaluate the COPD and screen for lung cancer. His urine shows massive proteinuria, I've asked for a urine microalbumin and creatinine ratio. TSH is slightly low I will obtain a free T4 and free T3 with his next lab draw. I've encouraged oral rehydration, ambulation.DC IVF.
[2017-08-05] MEDS: Albuterol/Ipratropium 3.0-0.5 MG/3 ML Neb Soln NEB PRN (09:42)
[2017-08-05] MEDS: Tamsulosin 0.4 MG Cap.ER PO SCH (20:27)
[2017-08-05] MEDS: atorvaSTATin 40 MG Tab PO SCH (20:27)
[2017-08-05] MEDS: Gabapentin 600 MG Tab PO SCH (20:27)
[2017-08-05] MEDS: predniSONE 20 MG Tab PO SCH (20:36)
[2017-08-05] MEDS ORDERED: Azithromycin 250 MG Tab PO SCH (20:45)
--- NOTE | 2017-08-06 07:36 | CT ---
INDICATION: COPD, hypoxia, weight loss, evaluate COPD, and screen for lung Ca. CT CHEST WITHOUT CONTRAST: Spiral 2.5 mm axial sections were obtained through the chest with sagittal and coronal reconstructions 08/05/2017. Comparison chest x-ray from 08/04/2017 is noted. Total exam DLP = 207.20 mGy-cm. Calcifications are noted in brachiocephalic vessels and the aorta and coronary arteries. The heart did not appear enlarged significantly, however. Evidence of previous surgery is noted - gastric. No mediastinal nodular masses were identified. Minimal mediastinal lymphadenopathy is nonspecific. An active infiltrate or effusion was not identified. No definite evidence of emphysema was seen. Minimal apical scarring is noted. In the left upper lobe, seen on axial images #39 through approximately #48, there is an irregular nodular mass of soft tissue density, which measures approximately 23 x [address] Without an old CT scan to compare, it is difficult to exclude malignancy with this appearance. It is adjacent to the mediastinum at and just below the arch of the aorta - level of the aortopulmonary window. If a contrast study could be obtained - IV iodinated contrast - an additional CT with IV contrast may be helpful for further evaluation of this finding. In the absence of ability to obtain a CT with IV contrast, MRI may be helpful. This mass is of soft tissue density - 39.59 Hounsfield units. IMPRESSION: 1. No definite acute process. 2. Possible lung carcinoma over 2 cm in diameter in the left upper lobe at the arch of the aorta - aortopulmonary window. Additional workup is recommended, such as iodinated contrast CT or MRI. Malignancy should be considered until proven otherwise, without old CT scan of the chest for comparison especially. 3. No gross evidence of emphysema is identified. Report faxed to Dr. Ike Mckinney on 08/06/2017 at 0740 hours. [facility]
[2017-08-06] MEDS: Carvedilol 6.25 MG Tab PO SCH ×2 (08:08→17:04)
[2017-08-06] MEDS: Aspirin 81 MG Tab.Chew PO SCH (08:10)
[2017-08-06] MEDS: Ferrous Sulfate 325 MG Tab PO SCH ×2 (08:10→20:04)
[2017-08-06] MEDS: Formoterol/Mometasone 100-5 MCG 8.8 GM Inhaler IH SCH ×2 (08:10→20:03)
[2017-08-06] MEDS: Magnesium Oxide 400 MG Tab PO SCH ×2 (08:11→20:06)
[2017-08-06] MEDS: Famotidine 20 MG Tab PO SCH ×2 (08:11→20:06)
[2017-08-06] MEDS: Isosorbide Mononitrate 30 MG Tab.ER PO SCH (08:11)
[2017-08-06] MEDS: Lisinopril 20 MG Tab PO SCH ×2 (08:12→20:07)
[2017-08-06] MEDS: predniSONE 20 MG Tab PO SCH ×2 (08:12→20:06)
[2017-08-06] MEDS: Multivitamin Tab PO SCH (08:12)
[2017-08-06] MEDS: carBAMazepine 100 MG Tab.Chew PO SCH ×2 (08:13→20:06)
--- NOTE | 2017-08-06 08:57 | PCM.PN ---
- General Info Date of Service: 08/06/17 Subjective Update: Patient complains of nausea every morning worse with takes medications. Physical therapy saw him yesterday his last problems with violence and gait. He denies cough or chest pain. He has no fever or chills but has had no stool since admission. Functional Status: Reports: Pain Controlled. Denies: Tolerating Diet - Patient Data Vitals - Most Recent: Last Vital Signs Temp 97.7 F 08/06/17 08:19 Pulse 89 08/06/17 08:19 Resp 18 08/06/17 08:19 BP 167/78 H 08/06/17 08:19 Pulse Ox 94 L 08/06/17 08:19 Weight - Most Recent: 52.571 kg Lab Results Last 24 Hours: Laboratory Results - last 24 hr 08/06/17 08/06/17 Range/Units 06:05 06:05 WBC 9.3 (4.5-12.0) X10-3/uL RBC 4.51 (4.30-5.75) x10(6)uL Hgb 13.2 (11.5-15.5) g/dL Hct 39.0 (30.0-51.3) % MCV 86.4 (80-96) fL MCH 29.3 (27.7-33.6) pg MCHC 34.0 (32.2-35.4) g/dL RDW 14.6 (11.5-15.5) % Plt Count 182 (125-369) X10(3)uL MPV 9.4 (7.4-10.4) fL Neut % (Auto) 79.2 (46-82) % Lymph % (Auto) 6.8 L (13-37) % [place] % (Auto) 13.5 H (4-12) % Eos % (Auto) 0 L (1.0-5.0) % Baso % (Auto) 0 (0-2) % Neut # (Auto) 7.4 (1.6-8.3) # Lymph # (Auto) 0.6 (0.6-5.0) # [place] # (Auto) 1.3 (0.0-1.3) # Eos # (Auto) 0.0 (0.0-0.8) # Baso # (Auto) 0.0 (0.0-0.2) # Sodium 138 (135-145) mmol/L Potassium 4.7 (3.5-5.3) mmol/L Chloride 101 (100-110) mmol/L Carbon Dioxide 34 H (21-32) mmol/L BUN 23 H (7-18) mg/dL Creatinine 0.8 (0.70-1.30) mg/dL Est Cr Clr Drug Dosing 69.36 mL/min Estimated GFR (MDRD) > 60 (>60) BUN/Creatinine Ratio 28.8 H (9-20) Glucose 135 H (80-116) mg/dL Calcium 8.6 (8.6-10.2) mg/dL Total Bilirubin 0.1 (0.1-1.3) mg/dL AST 18 (5-25) IU/L ALT 15 D (12-36) U/L Alkaline Phosphatase 95 (56-112) IU/L Total Protein 6.0 (6.0-8.0) g/dL Albumin 2.9 L (3.2-4.6) g/dL Globulin 3.1 g/dL Albumin/Globulin Ratio 0.9 Med Orders - Current: Current Medications Albuterol (Proventil Neb Soln) 2.5 mg NEB Q4H PRN PRN Reason: sob Albuterol/Ipratropium (Duoneb 3.0-0.5 Mg/3 Ml) 3 ml NEB Q6H PRN PRN Reason: Wheezing Last Admin: 08/05/17 09:42 Dose: 3 ml Alendronate Sodium (Fosamax) 70 mg PO Mo@0600 [facility] Aspirin (Aspirin) 81 mg PO DAILY [facility] Last Admin: 08/06/17 08:10 Dose: 81 mg Atorvastatin Calcium (Lipitor) 80 mg PO BEDTIME [facility] Last Admin: 08/05/17 20:27 Dose: 80 mg Carbamazepine (Tegretol) 200 mg PO BID [facility] Last Admin: 08/06/17 08:13 Dose: 200 mg Carvedilol (Coreg) 6.25 mg PO BIDMEALS [facility] Last Admin: 08/06/17 08:08 Dose: 6.25 mg Famotidine (Pepcid) 20 mg PO BID [facility] Last Admin: 08/06/17 08:11 Dose: 20 mg Ferrous Sulfate (Ferrous Sulfate) 325 mg PO BID [facility] Last Admin: 08/06/17 08:10 Dose: 325 mg Gabapentin (Neurontin) 600 mg PO BEDTIME [facility] Last Admin: 08/05/17 20:27 Dose: 600 mg Isosorbide Mononitrate (Imdur) 30 mg PO DAILY [facility] Last Admin: 08/06/17 08:11 Dose: 30 mg Lisinopril (Prinivil) 20 mg PO BID [facility] Last Admin: 08/06/17 08:12 Dose: 20 mg Loperamide HCl (Imodium) 2 mg PO QID PRN PRN Reason: LOOSE STOOLS Magnesium Oxide (Magnesium Oxide) 400 mg PO BID [facility] Last Admin: 08/06/17 08:11 Dose: 400 mg Methocarbamol (Robaxin) 500 mg PO TID PRN PRN Reason: Pain Last Admin: 08/04/17 23:35 Dose: 500 mg Mometasone Furoate/Formoterol Fumar (Dulera 100-5 Mcg) 2 puff IH BID [facility] Last Admin: 08/06/17 08:10 Dose: 2 puff Multivitamins/Minerals/Vitamin C (Tab-A-Inez) 1 tab PO DAILY [facility] Last Admin: 08/06/17 08:12 Dose: 1 tab Nitroglycerin (Nitrostat) 0.4 mg SL ASDIRECTED PRN PRN Reason: Pain Last Admin: 08/05/17 09:00 Dose: 0.4 mg Non-Formulary Medication (Cholecalciferol (Vitamin D3) [Vitamin D3]) 50,000 unit PO MO [facility] Ondansetron HCl (Zofran Odt) 4 mg PO Q8H PRN PRN Reason: Nausea Prednisone (Prednisone) 20 mg PO BID [facility] Last Admin: 08/06/17 08:12 Dose: 20 mg Promethazine HCl (Phenergan) 25 mg PO BID PRN PRN Reason: Nausea Tamsulosin HCl (Flomax) 0.4 mg PO BEDTIME [facility] Last Admin: 08/05/17 20:27 Dose: 0.4 mg Discontinued Medications Albuterol/Ipratropium (Duoneb 3.0-0.5 Mg/3 Ml) 3 ml NEB ONETIME ONE Stop: 08/04/17 14:13 Last Admin: 08/04/17 14:28 Dose: 3 ml Atorvastatin Calcium (Lipitor) Confirm Administered Dose 40 mg .ROUTE .STK-MED ONE Stop: 08/04/17 22:01 Last Admin: 08/04/17 22:39 Dose: Not Given Azithromycin (Zithromax) 500 mg PO DAILY [facility] Last Admin: 08/05/17 20:45 Dose: 500 mg Azithromycin (Zithromax) 500 mg PO Q24H [facility] Capsaicin (Capzasin-P 0.0375% Crm) 0 gm TOP TID [facility] Last Admin: 08/04/17 22:38 Dose: 1 applic Capsaicin (Zostrix 0.025% Crm) 0 gm TOP TID [facility] Last Admin: 08/05/17 08:35 Dose: Not Given Carbamazepine (Tegretol Tab) 200 mg PO BID [facility] Last Admin: 08/05/17 01:12 Dose: Not Given Carbamazepine (Tegretol) Confirm Administered Dose 200 mg .ROUTE .STK-MED ONE Stop: 08/04/17 21:02 Last Admin: 08/04/17 22:39 Dose: Not Given Clonidine HCl (Catapres) 0.1 mg PO ONETIME ONE Stop: 08/04/17 14:18 Last Admin: 08/04/17 14:21 Dose: Not Given Cyanocobalamin (Vitamin B12) 100 mcg PO DAILY [facility] Last Admin: 08/05/17 08:31 Dose: Not Given Furosemide (Lasix) 20 mg IVPUSH ONETIME ONE Stop: 08/04/17 15:25 Last Admin: 08/04/17 16:57 Dose: 20 mg Gabapentin (Neurontin) 600 mg PO BEDTIME [facility] Last Admin: 08/05/17 01:11 Dose: Not Given Gabapentin (Neurontin) Confirm Administered Dose 600 mg .ROUTE .STK-MED ONE Stop: 08/04/17 21:05 Last Admin: 08/04/17 22:38 Dose: Not Given Gabapentin (Neurontin) 600 mg PO BEDTIME [facility] Last Admin: 08/04/17 21:54 Dose: 600 mg Hydroxyzine Pamoate (Vistaril) 50 mg PO BID [facility] Last Admin: 08/05/17 08:31 Dose: 50 mg Sodium Chloride (Normal Saline) 1,000 mls @ 125 mls/hr IV ASDIRECTED [facility] Sodium Chloride (Normal Saline) 1,000 mls @ 999 mls/hr IV .BOLUS ONE Stop: 08/04/17 15:14 Last Admin: 08/04/17 14:05 Dose: 999 mls/hr Sodium Chloride (Normal Saline) 1,000 mls @ 125 mls/hr IV ASDIRECTED [facility] Last Admin: 08/05/17 03:06 Dose: 125 mls/hr Azithromycin 500 mg/ Sodium (Chloride) 250 mls @ 250 mls/hr IV Q24H [facility] Last Admin: 08/04/17 22:02 Dose: 250 mls/hr Methylprednisolone Sodium Succinate (Solu-Medrol) 125 mg IVPUSH ONETIME ONE Stop: 08/04/17 14:13 Last Admin: 08/04/17 14:27 Dose: 125 mg Methylprednisolone Sodium Succinate (Solu-Medrol) 125 mg IVPUSH Q12H [facility] Last Admin: 08/05/17 15:05 Dose: Not Given Methylprednisolone Sodium Succinate (Solu-Medrol) Confirm Administered Dose 125 mg .ROUTE .STK-MED ONE Stop: 08/04/17 21:15 Last Admin: 08/04/17 22:37 Dose: Not Given Mometasone Furoate/Formoterol Fumar (Dulera 100-5 Mcg) 2 puff IH BID [facility] Last Admin: 08/04/17 21:54 Dose: Not Given Non-Formulary Medication (Capsaicin [Zostrix 0.025% Crm]) 1 applic TOP TID [facility] Last Admin: 08/05/17 01:10 Dose: Not Given Non-Formulary Medication (Magnesium Oxide [Magnesium Oxide]) 420 mg PO BID [facility] Last Admin: 08/05/17 01:11 Dose: Not Given Capsaicin 0.025% (Cream) 0 each TOP TID [facility] Last Admin: 08/04/17 22:30 Dose: 1 each Ondansetron HCl (Zofran) 8 mg IV Q4H PRN PRN Reason: Nausea/Vomiting Sodium Chloride (Saline Flush) 10 ml FLUSH ASDIRECTED PRN PRN Reason: Keep Vein Open Sucralfate (Carafate) 1 gm PO QIDACANDBED [facility] Last Admin: 08/05/17 08:30 Dose: 1 gm Zolpidem Tartrate (Ambien) 5 mg PO ONETIME ONE Stop: 08/04/17 20:30 Last Admin: 08/04/17 22:03 Dose: 5 mg - Exam General: Alert HEENT: Pupils Equal, Pupils Reactive, EOMI, Mucous Membr. Moist/[place] Neck: Supple Lungs: Clear to Auscultation Cardiovascular: Regular Rate Skin: Warm Psy/Mental Status: Alert - Problem List & Annotations (1) COPD exacerbation SNOMED Code(s): 898755116793568 Code(s): J44.1 - CHRONIC OBSTRUCTIVE PULMONARY DISEASE W (ACUTE) EXACERBATION Status: Acute Current Visit: Yes (2) Cachexia SNOMED Code(s): 686951733 Code(s): R64 - CACHEXIA Status: Acute Current Visit: Yes (3) Anorexia SNOMED Code(s): 85684026 Code(s): R63.0 - ANOREXIA Status: Acute Current Visit: Yes (4) CAD (coronary artery disease) SNOMED Code(s): 67267617 Code(s): I25.10 - ATHSCL HEART DISEASE OF [place] CORONARY ARTERY W/O ANG PCTRS Status: Acute Current Visit: Yes Qualifiers: Coronary Disease-Associated Artery/Lesion type: bypass graft (5) Insomnia SNOMED Code(s): 692383867 Code(s): G47.00 - INSOMNIA, UNSPECIFIED Status: Acute Current Visit: Yes Qualifiers: Insomnia type: primary Qualified Code(s): F51.01 - Primary insomnia (6) HTN, goal below 130/80 SNOMED Code(s): 85565930 Code(s): I10 - ESSENTIAL (PRIMARY) HYPERTENSION Status: Acute Current Visit: Yes (7) Current smoker SNOMED Code(s): 98347772 Code(s): F17.200 - NICOTINE DEPENDENCE, UNSPECIFIED, UNCOMPLICATED Status: Chronic Current Visit: No (8) Dehydration SNOMED Code(s): 84436924 Code(s): E86.0 - DEHYDRATION Status: Acute Current Visit: Yes (9) Generalized weakness SNOMED Code(s): 99227042 Code(s): R53.1 - WEAKNESS Status: Acute Current Visit: Yes (10) H/O: stroke SNOMED Code(s): 916431867 Code(s): Z86.73 - PRSNL HX OF TIA (TIA), AND CEREB INFRC W/O RESID DEFICITS Status: Acute Current Visit: Yes (11) H/O drug abuse SNOMED Code(s): 600658606 Code(s): Z87.898 - PERSONAL HISTORY OF OTHER SPECIFIED CONDITIONS Status: Acute Current Visit: Yes (12) Cannabis abuse SNOMED Code(s): 75393942 Code(s): F12.10 - CANNABIS ABUSE, UNCOMPLICATED Status: Acute Current Visit: Yes (13) Falls frequently SNOMED Code(s): 891468149 Code(s): R29.6 - REPEATED FALLS Status: Acute Current Visit: Yes (14) Proteinuria SNOMED Code(s): 82732242 Code(s): R80.9 - PROTEINURIA, UNSPECIFIED Status: Acute Current Visit: Yes (15) Hyperthyroidism SNOMED Code(s): 35553216 Code(s): E05.90 - THYROTOXICOSIS, UNSP WITHOUT THYROTOXIC CRISIS OR STORM Status: Acute Current Visit: Yes (16) S/P gastrectomy SNOMED Code(s): 599330091 Code(s): Z90.3 - ACQUIRED ABSENCE OF STOMACH [PART OF] Status: Acute Current Visit: Yes (17) Palliative care patient SNOMED Code(s): 744593586 Code(s): Z51.5 - ENCOUNTER FOR PALLIATIVE CARE Status: Acute Current Visit: Yes (18) Pulmonary mass SNOMED Code(s): 331319622 Code(s): R91.8 - OTHER NONSPECIFIC ABNORMAL FINDING OF LUNG FIELD Status: Acute Current Visit: Yes - Problem List Review Problem List Initiated/Reviewed/Updated: Yes - My Orders Last 24 Hours: My Active Orders 08/05/17 09:00 Aspirin 81 mg PO DAILY Isosorbide Mononitrate [Imdur] 30 mg PO DAILY Multivitamins [Tab-A-Inez] 1 tab PO DAILY 08/05/17 12:30 FREE T3 [REF] Routine FREE T4 [REF] Routine 08/05/17 15:23 Discontinue Saline Lock [Peripheral IV Discontinue] [OM.PC] Routine 08/05/17 21:00 Gabapentin [Neurontin] 600 mg PO BEDTIME predniSONE 20 mg PO BID 08/06/17 09:00 Pantoprazole [ProTONIX] 40 mg PO 0600 08/10/17 06:00 Alendronate [Fosamax] 70 mg PO Mo@0600 08/10/17 20:29 Cholecalciferol (Vitamin D3) [Vitamin D3] 50,000 unit PO MO - Plan Plan:: I have reviewed the CT scan that was done yesterday of the chest. Seems to be a 2cm sized mass of questionable etiology. Depending on what physical therapy finds today I will discharge him either home or to swing bed for rehabilitation eventually will refer him to pulmonology as an outpatient for further follow-up on the mass.For now,his [employer] seems stable enough. DC Azithromycin and continue with oral corticosteroids. For his nausea start a PPI -Protonix. Will use promethazine when necessary for nausea. Appreciate the consultation from physical therapy and dietary.
[2017-08-06] MEDS: Pantoprazole 40 MG Tab.CR PO SCH (09:18)
[2017-08-06] MEDS: Tamsulosin 0.4 MG Cap.ER PO SCH (20:04)
[2017-08-06] MEDS: atorvaSTATin 40 MG Tab PO SCH (20:06)
[2017-08-06] MEDS: Gabapentin 600 MG Tab PO SCH (20:06)
[2017-08-06] MEDS ORDERED: Azithromycin 500 MG Tab PO SCH (21:00)
[2017-08-07] MEDS: Methocarbamol 500 MG Tab PO PRN (04:17)
[2017-08-07] MEDS: Pantoprazole 40 MG Tab.CR PO SCH (06:16)
--- NOTE | 2017-08-07 07:49 | PCM.PN ---
- General Info Date of Service: 08/07/17 Admission Dx/Problem (Free Text): Patient states he feels better. Says he has some nausea. Said he had stomach and part of the small bowel moved in senior care. He states he moved his bowels yesterday for some 2 weeks. Has little abdominal pain at occasionally. Occasionally short of breath but that's improved no fevers, chills or chest pain. Patient states he would like to go home. - Patient Data Vitals - Most Recent: Last Vital Signs Temp 97.6 F 08/07/17 04:00 Pulse 70 08/07/17 04:00 Resp 16 08/07/17 04:00 BP 133/70 08/07/17 04:00 Pulse Ox 89 L 08/07/17 04:00 Weight - Most Recent: 116 lb 9.6 oz I&O - Last 24 Hours: Intake & Output 08/06/17 08/07/17 08/07/17 22:59 06:59 14:59 Intake Total 500 Balance 500 Lab Results Last 24 Hours: Laboratory Results - last 24 hr 08/05/17 Range/Units 12:30 Free T4 1.41 (0.93-1.70) ng/dL Free T3 1.9 L (2.0-4.4) pg/mL Med Orders - Current: Current Medications Albuterol (Proventil Neb Soln) 2.5 mg NEB Q4H PRN PRN Reason: sob Albuterol/Ipratropium (Duoneb 3.0-0.5 Mg/3 Ml) 3 ml NEB Q6H PRN PRN Reason: Wheezing Last Admin: 08/05/17 09:42 Dose: 3 ml Alendronate Sodium (Fosamax) 70 mg PO Mo@0600 [facility] Aspirin (Aspirin) 81 mg PO DAILY [facility] Last Admin: 08/06/17 08:10 Dose: 81 mg Atorvastatin Calcium (Lipitor) 80 mg PO BEDTIME [facility] Last Admin: 08/06/17 20:06 Dose: 80 mg Carbamazepine (Tegretol) 200 mg PO BID [facility] Last Admin: 08/06/17 20:06 Dose: 200 mg Carvedilol (Coreg) 6.25 mg PO BIDMEALS [facility] Last Admin: 08/06/17 17:04 Dose: 6.25 mg Famotidine (Pepcid) 20 mg PO BID [facility] Last Admin: 08/06/17 20:06 Dose: 20 mg Ferrous Sulfate (Ferrous Sulfate) 325 mg PO BID [facility] Last Admin: 08/06/17 20:04 Dose: 325 mg Gabapentin (Neurontin) 600 mg PO BEDTIME [facility] Last Admin: 08/06/17 20:06 Dose: 600 mg Isosorbide Mononitrate (Imdur) 30 mg PO DAILY [facility] Last Admin: 08/06/17 08:11 Dose: 30 mg Lisinopril (Prinivil) 20 mg PO BID [facility] Last Admin: 08/06/17 20:07 Dose: 20 mg Loperamide HCl (Imodium) 2 mg PO QID PRN PRN Reason: LOOSE STOOLS Magnesium Oxide (Magnesium Oxide) 400 mg PO BID [facility] Last Admin: 08/06/17 20:06 Dose: 400 mg Methocarbamol (Robaxin) 500 mg PO TID PRN PRN Reason: Pain Last Admin: 08/07/17 04:17 Dose: 500 mg Mometasone Furoate/Formoterol Fumar (Dulera 100-5 Mcg) 2 puff IH BID [facility] Last Admin: 08/06/17 20:03 Dose: 2 puff Multivitamins/Minerals/Vitamin C (Tab-A-Inez) 1 tab PO DAILY [facility] Last Admin: 08/06/17 08:12 Dose: 1 tab Nitroglycerin (Nitrostat) 0.4 mg SL ASDIRECTED PRN PRN Reason: Pain Last Admin: 08/05/17 09:00 Dose: 0.4 mg Non-Formulary Medication (Cholecalciferol (Vitamin D3) [Vitamin D3]) 50,000 unit PO MO [facility] Ondansetron HCl (Zofran Odt) 4 mg PO Q8H PRN PRN Reason: Nausea Pantoprazole Sodium (Protonix) 40 mg PO 0600 [facility] Last Admin: 08/07/17 06:16 Dose: 40 mg Prednisone (Prednisone) 20 mg PO BID [facility] Last Admin: 08/06/17 20:06 Dose: 20 mg Promethazine HCl (Phenergan) 25 mg PO BID PRN PRN Reason: Nausea Tamsulosin HCl (Flomax) 0.4 mg PO BEDTIME [facility] Last Admin: 08/06/17 20:04 Dose: 0.4 mg Discontinued Medications Albuterol/Ipratropium (Duoneb 3.0-0.5 Mg/3 Ml) 3 ml NEB ONETIME ONE Stop: 08/04/17 14:13 Last Admin: 08/04/17 14:28 Dose: 3 ml Atorvastatin Calcium (Lipitor) Confirm Administered Dose 40 mg .ROUTE .STK-MED ONE Stop: 08/04/17 22:01 Last Admin: 08/04/17 22:39 Dose: Not Given Azithromycin (Zithromax) 500 mg PO DAILY [facility] Last Admin: 08/05/17 20:45 Dose: 500 mg Azithromycin (Zithromax) 500 mg PO Q24H [facility] Capsaicin (Capzasin-P 0.0375% Crm) 0 gm TOP TID [facility] Last Admin: 08/04/17 22:38 Dose: 1 applic Capsaicin (Zostrix 0.025% Crm) 0 gm TOP TID [facility] Last Admin: 08/05/17 08:35 Dose: Not Given Carbamazepine (Tegretol Tab) 200 mg PO BID [facility] Last Admin: 08/05/17 01:12 Dose: Not Given Carbamazepine (Tegretol) Confirm Administered Dose 200 mg .ROUTE .STK-MED ONE Stop: 08/04/17 21:02 Last Admin: 08/04/17 22:39 Dose: Not Given Clonidine HCl (Catapres) 0.1 mg PO ONETIME ONE Stop: 08/04/17 14:18 Last Admin: 08/04/17 14:21 Dose: Not Given Cyanocobalamin (Vitamin B12) 100 mcg PO DAILY [facility] Last Admin: 08/05/17 08:31 Dose: Not Given Furosemide (Lasix) 20 mg IVPUSH ONETIME ONE Stop: 08/04/17 15:25 Last Admin: 08/04/17 16:57 Dose: 20 mg Gabapentin (Neurontin) 600 mg PO BEDTIME [facility] Last Admin: 08/05/17 01:11 Dose: Not Given Gabapentin (Neurontin) Confirm Administered Dose 600 mg .ROUTE .STK-MED ONE Stop: 08/04/17 21:05 Last Admin: 08/04/17 22:38 Dose: Not Given Gabapentin (Neurontin) 600 mg PO BEDTIME [facility] Last Admin: 08/04/17 21:54 Dose: 600 mg Hydroxyzine Pamoate (Vistaril) 50 mg PO BID [facility] Last Admin: 08/05/17 08:31 Dose: 50 mg Sodium Chloride (Normal Saline) 1,000 mls @ 125 mls/hr IV ASDIRECTED [facility] Sodium Chloride (Normal Saline) 1,000 mls @ 999 mls/hr IV .BOLUS ONE Stop: 08/04/17 15:14 Last Admin: 08/04/17 14:05 Dose: 999 mls/hr Sodium Chloride (Normal Saline) 1,000 mls @ 125 mls/hr IV ASDIRECTED [facility] Last Admin: 08/05/17 03:06 Dose: 125 mls/hr Azithromycin 500 mg/ Sodium (Chloride) 250 mls @ 250 mls/hr IV Q24H [facility] Last Admin: 08/04/17 22:02 Dose: 250 mls/hr Methylprednisolone Sodium Succinate (Solu-Medrol) 125 mg IVPUSH ONETIME ONE Stop: 08/04/17 14:13 Last Admin: 08/04/17 14:27 Dose: 125 mg Methylprednisolone Sodium Succinate (Solu-Medrol) 125 mg IVPUSH Q12H [facility] Last Admin: 08/05/17 15:05 Dose: Not Given Methylprednisolone Sodium Succinate (Solu-Medrol) Confirm Administered Dose 125 mg .ROUTE .STK-MED ONE Stop: 08/04/17 21:15 Last Admin: 08/04/17 22:37 Dose: Not Given Mometasone Furoate/Formoterol Fumar (Dulera 100-5 Mcg) 2 puff IH BID [facility] Last Admin: 08/04/17 21:54 Dose: Not Given Non-Formulary Medication (Capsaicin [Zostrix 0.025% Crm]) 1 applic TOP TID [facility] Last Admin: 08/05/17 01:10 Dose: Not Given Non-Formulary Medication (Magnesium Oxide [Magnesium Oxide]) 420 mg PO BID [facility] Last Admin: 08/05/17 01:11 Dose: Not Given Capsaicin 0.025% (Cream) 0 each TOP TID [facility] Last Admin: 08/04/17 22:30 Dose: 1 each Ondansetron HCl (Zofran) 8 mg IV Q4H PRN PRN Reason: Nausea/Vomiting Sodium Chloride (Saline Flush) 10 ml FLUSH ASDIRECTED PRN PRN Reason: Keep Vein Open Sucralfate (Carafate) 1 gm PO QIDACANDBED [facility] Last Admin: 08/05/17 08:30 Dose: 1 gm Zolpidem Tartrate (Ambien) 5 mg PO ONETIME ONE Stop: 08/04/17 20:30 Last Admin: 08/04/17 22:03 Dose: 5 mg - Exam General: Alert, Oriented, Cooperative Lungs: Clear to Auscultation, Normal Respiratory Effort Cardiovascular: Regular Rate, Regular Rhythm, No Murmurs GI/Abdominal Exam: Normal Bowel Sounds, Soft, Tender (Mild and diffuse). No: Rebound - Problem List & Annotations (1) COPD exacerbation SNOMED Code(s): 492886220560859 Code(s): J44.1 - CHRONIC OBSTRUCTIVE PULMONARY DISEASE W (ACUTE) EXACERBATION Status: Acute Current Visit: Yes (2) Dehydration SNOMED Code(s): 97198550 Code(s): E86.0 - DEHYDRATION Status: Acute Current Visit: Yes (3) Generalized weakness SNOMED Code(s): 01605386 Code(s): R53.1 - WEAKNESS Status: Acute Current Visit: Yes (4) Palliative care patient SNOMED Code(s): 588032518 Code(s): Z51.5 - ENCOUNTER FOR PALLIATIVE CARE Status: Acute Current Visit: Yes (5) Pulmonary mass SNOMED Code(s): 696985465 Code(s): R91.8 - OTHER NONSPECIFIC ABNORMAL FINDING OF LUNG FIELD Status: Acute Current Visit: Yes - Problem List Review Problem List Initiated/Reviewed/Updated: Yes - Plan Plan:: Discharge to home today on his regular medications. Set up pulmonary consultation for lung mass. Home health.
[2017-08-07] MEDS: Albuterol/Ipratropium 3.0-0.5 MG/3 ML Neb Soln NEB PRN (07:53)
[2017-08-07] MEDS: Carvedilol 6.25 MG Tab PO SCH (08:02)
--- NOTE | 2017-08-07 08:05 | PCM.DCSUM1 ---
Discharge Summary - Hospital Course Free Text/Narrative:: Hospital course-patient was admitted for IV hydration, steroids. There is no indication that he had an infection. He has some diffuse nausea and dehydration. The patient did improve although his nausea continued a little bit. Promethazine did work for this. Patient stated that he had most of the stomach and part of the small bowel removed in [facility] several years ago. He had not had a bowel movement in 2 weeks ahead 1 while he was here. His TSH was a little low and T4 was low once and repeated and normal. Troponin was done was negative. Sodium was slightly low 134 otherwise lecture lites looked okay. CBC was normal. He did have elevated proBNP. But had no real symptoms of CHF while he was here. His oxygen improved. No leg swelling. He should still had very little appetite was able to eat and drink and do okay. He was evaluated by PT/ OT for swing bed and did not qualify. He elected to go home on home health. He did have a CT scan that showed a irregular pulmonary nodule in the left upper lobe. He will be referred to pulmonary medicine for this issue. Brief History: 66-year-old male who was brought in because of weakness for about 4 days. He states that his brother brought him in because he was stumbling around and had no strength,could harldy walk.Lives alone. He's not been able to eat for at least 4 days has not had anything to drink either. He says he has no appetite. Food tastes bad.He has a result she's lost a lot of weight. 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 he has coronary artery disease with stents 7. His echocardiogram in October of this year showed an ejection fraction 75%. He does have a huge heart murmur. He did not have any chest pain today. . Has been well-controlled he has type 2 diabetes,on diet, and ah/o BPH, and history of coronary disease,recent admission in December at [facility] -medical intervention for STEMI. On further inquiry he does complain of feeling kind of sad or depressed ;he does not sleep well at night. - Discharge Data Discharge Date: 08/07/17 Discharge Disposition: Home, W Home Health Agency 06 Condition: Fair - Discharge Diagnosis/Problem(s) (1) COPD exacerbation SNOMED Code(s): 022156944304459 ICD Code: J44.1 - CHRONIC OBSTRUCTIVE PULMONARY DISEASE W (ACUTE) EXACERBATION Status: Acute Current Visit: Yes (2) Dehydration SNOMED Code(s): 84996890 ICD Code: E86.0 - DEHYDRATION Status: Acute Current Visit: Yes (3) Generalized weakness SNOMED Code(s): 59301445 ICD Code: R53.1 - WEAKNESS Status: Acute Current Visit: Yes (4) Palliative care patient SNOMED Code(s): 507738659 ICD Code: Z51.5 - ENCOUNTER FOR PALLIATIVE CARE Status: Acute Current Visit: Yes (5) Pulmonary mass SNOMED Code(s): 125149575 ICD Code: R91.8 - OTHER NONSPECIFIC ABNORMAL FINDING OF LUNG FIELD Status: Acute Current Visit: Yes - Patient Summary/Data Consults: Consultations 08/04/17 20:56 Consult to Patch Washer [CONS] Routine Comment: Physician Instructions: Quantity: OT Evaluation and Treatment [CONS] Routine Please Evaluate and Treat. OT Reason for Consult: ADL's This query below is only for informational purposes and is not editable. Admission Diagnosis/Problem: COPD, Moderate chronic obstructive pulmonary disease PT Evaluation and Treatment [CONS] Stat Please Evaluate and Treat. PT Reason for Consult: Ambulation This query below is only for informational purposes and is not editable. Admission Diagnosis/Problem: COPD, Moderate chronic obstructive pulmonary disease - Patient Instructions Diet: Heart Healthy Diet Activity: As Tolerated Driving: Do Not Drive Showering/Bathing: May Shower Notify Provider of: Fever, Increased Pain, Swelling and Redness, Drainage, Nausea and/or Vomiting Other/Special Instructions: 1. Make appt with Pulmonary for lung mass. 2. Recheck with Dr Espinal in [place] in 1 week. 3. Home health for medical management, education, home safety. - Discharge Plan Prescriptions/Med Rec: predniSONE [Prednisone] 20 mg PO BID #14 tablet Promethazine [Phenergan] 25 mg PO BID PRN #60 tablet PRN Reason: Nausea Home Medications: Home Meds Aspirin [Mora Chewable Aspirin] 81 mg PO DAILY 11/12/15 [History] Famotidine 20 mg PO BID 11/12/15 [History] Gabapentin [Neurontin] 600 mg PO BEDTIME 11/12/15 [History] Methocarbamol 500 mg PO TID PRN 11/12/15 [History] Nitroglycerin [Nitrostat] 0.4 mg SL ASDIRECTED PRN 11/12/15 [History] Sucralfate [Carafate] 1 gm PO QIDACANDBED 11/12/15 [History] Tamsulosin [Flomax] 0.4 mg PO BEDTIME 11/12/15 [History] atorvaSTATin [Lipitor] 80 mg PO BEDTIME 11/12/15 [History] carBAMazepine [Carbamazepine] 200 mg PO BID 11/12/15 [History] hydrOXYzine Pamoate [Hydroxyzine Pamoate] 50 mg PO BID 11/12/15 [History] Albuterol [Ventolin HFA] 2 inh INH Q4H PRN 01/17/17 [History] Alendronate Sodium [Alendronate] 70 mg PO MO 01/17/17 [History] Budesonide/Formoterol Fumarate [Symbicort 80-4.5 Mcg Inhaler] 2 puff INH BID [History] Capsaicin [Zostrix 0.025% Crm] 1 applic TOP TID 01/17/17 [History] Ferrous Sulfate 325 mg PO BID 01/17/17 [History] Lisinopril 20 mg PO BID 01/17/17 [History] Magnesium Oxide 420 mg PO BID 01/17/17 [History] Multivitamin [Multi-Vitamin Daily] 1 tab PO DAILY 01/17/17 [History] Carvedilol [Coreg] 6.25 mg PO BID 08/04/17 [History] Cholecalciferol (Vitamin D3) [Vitamin D3] 50,000 unit PO MO 08/04/17 [History] Cyanocobalamin (Vitamin B12) [Vitamin B12] 100 mcg PO DAILY 08/04/17 [History] Isosorbide Mononitrate [Imdur] 30 mg DAILY 08/04/17 [History] Loperamide [Imodium] 2 mg PO QID PRN 08/04/17 [History] Ondansetron [Zofran] 4 mg PO Q8H PRN 08/04/17 [History] Promethazine [Phenergan] 25 mg PO BID PRN #60 tablet 08/07/17 [Rx] predniSONE [Prednisone] 20 mg PO BID #14 tablet 08/07/17 [Rx] Forms: ED Department Discharge, Take Home DC Nutrition Plan Referrals: PCP,Not In Area [Primary Care Provider] - - Discharge Summary/Plan Comment DC Time >30 min.: No - Patient Data Vitals - Most Recent: Last Vital Signs Temp 97.6 F 08/07/17 04:00 Pulse 70 08/07/17 04:00 Resp 16 08/07/17 04:00 BP 133/70 08/07/17 04:00 Pulse Ox 89 L 08/07/17 04:00 Weight - Most Recent: 116 lb 9.6 oz I&O - Last 24 hours: Intake & Output 08/06/17 08/07/17 08/07/17 22:59 06:59 14:59 Intake Total 500 Balance 500 Lab Results - Last 24 hrs: Laboratory Results - last 24 hr 08/05/17 Range/Units 12:30 Free T4 1.41 (0.93-1.70) ng/dL Free T3 1.9 L (2.0-4.4) pg/mL Med Orders - Current: Current Medications Albuterol (Proventil Neb Soln) 2.5 mg NEB Q4H PRN PRN Reason: sob Albuterol/Ipratropium (Duoneb 3.0-0.5 Mg/3 Ml) 3 ml NEB Q6H PRN PRN Reason: Wheezing Last Admin: 08/07/17 07:53 Dose: 3 ml Alendronate Sodium (Fosamax) 70 mg PO Mo@0600 [facility] Aspirin (Aspirin) 81 mg PO DAILY [facility] Last Admin: 08/06/17 08:10 Dose: 81 mg Atorvastatin Calcium (Lipitor) 80 mg PO BEDTIME [facility] Last Admin: 08/06/17 20:06 Dose: 80 mg Carbamazepine (Tegretol) 200 mg PO BID [facility] Last Admin: 08/06/17 20:06 Dose: 200 mg Carvedilol (Coreg) 6.25 mg PO BIDMEALS [facility] Last Admin: 08/06/17 17:04 Dose: 6.25 mg Famotidine (Pepcid) 20 mg PO BID [facility] Last Admin: 08/06/17 20:06 Dose: 20 mg Ferrous Sulfate (Ferrous Sulfate) 325 mg PO BID [facility] Last Admin: 08/06/17 20:04 Dose: 325 mg Gabapentin (Neurontin) 600 mg PO BEDTIME [facility] Last Admin: 08/06/17 20:06 Dose: 600 mg Isosorbide Mononitrate (Imdur) 30 mg PO DAILY [facility] Last Admin: 08/06/17 08:11 Dose: 30 mg Lisinopril (Prinivil) 20 mg PO BID [facility] Last Admin: 08/06/17 20:07 Dose: 20 mg Loperamide HCl (Imodium) 2 mg PO QID PRN PRN Reason: LOOSE STOOLS Magnesium Oxide (Magnesium Oxide) 400 mg PO BID [facility] Last Admin: 08/06/17 20:06 Dose: 400 mg Methocarbamol (Robaxin) 500 mg PO TID PRN PRN Reason: Pain Last Admin: 08/07/17 04:17 Dose: 500 mg Mometasone Furoate/Formoterol Fumar (Dulera 100-5 Mcg) 2 puff IH BID [facility] Last Admin: 08/06/17 20:03 Dose: 2 puff Multivitamins/Minerals/Vitamin C (Tab-A-Inez) 1 tab PO DAILY [facility] Last Admin: 08/06/17 08:12 Dose: 1 tab Nitroglycerin (Nitrostat) 0.4 mg SL ASDIRECTED PRN PRN Reason: Pain Last Admin: 08/05/17 09:00 Dose: 0.4 mg Non-Formulary Medication (Cholecalciferol (Vitamin D3) [Vitamin D3]) 50,000 unit PO MO [facility] Ondansetron HCl (Zofran Odt) 4 mg PO Q8H PRN PRN Reason: Nausea Pantoprazole Sodium (Protonix) 40 mg PO 0600 [facility] Last Admin: 08/07/17 06:16 Dose: 40 mg Prednisone (Prednisone) 20 mg PO BID [facility] Last Admin: 08/06/17 20:06 Dose: 20 mg Promethazine HCl (Phenergan) 25 mg PO BID PRN PRN Reason: Nausea Tamsulosin HCl (Flomax) 0.4 mg PO BEDTIME [facility] Last Admin: 08/06/17 20:04 Dose: 0.4 mg Discontinued Medications Albuterol/Ipratropium (Duoneb 3.0-0.5 Mg/3 Ml) 3 ml NEB ONETIME ONE Stop: 08/04/17 14:13 Last Admin: 08/04/17 14:28 Dose: 3 ml Atorvastatin Calcium (Lipitor) Confirm Administered Dose 40 mg .ROUTE .STK-MED ONE Stop: 08/04/17 22:01 Last Admin: 08/04/17 22:39 Dose: Not Given Azithromycin (Zithromax) 500 mg PO DAILY [facility] Last Admin: 08/05/17 20:45 Dose: 500 mg Azithromycin (Zithromax) 500 mg PO Q24H [facility] Capsaicin (Capzasin-P 0.0375% Crm) 0 gm TOP TID [facility] Last Admin: 08/04/17 22:38 Dose: 1 applic Capsaicin (Zostrix 0.025% Crm) 0 gm TOP TID [facility] Last Admin: 08/05/17 08:35 Dose: Not Given Carbamazepine (Tegretol Tab) 200 mg PO BID [facility] Last Admin: 08/05/17 01:12 Dose: Not Given Carbamazepine (Tegretol) Confirm Administered Dose 200 mg .ROUTE .STK-MED ONE Stop: 08/04/17 21:02 Last Admin: 08/04/17 22:39 Dose: Not Given Clonidine HCl (Catapres) 0.1 mg PO ONETIME ONE Stop: 08/04/17 14:18 Last Admin: 08/04/17 14:21 Dose: Not Given Cyanocobalamin (Vitamin B12) 100 mcg PO DAILY [facility] Last Admin: 08/05/17 08:31 Dose: Not Given Furosemide (Lasix) 20 mg IVPUSH ONETIME ONE Stop: 08/04/17 15:25 Last Admin: 08/04/17 16:57 Dose: 20 mg Gabapentin (Neurontin) 600 mg PO BEDTIME [facility] Last Admin: 08/05/17 01:11 Dose: Not Given Gabapentin (Neurontin) Confirm Administered Dose 600 mg .ROUTE .STK-MED ONE Stop: 08/04/17 21:05 Last Admin: 08/04/17 22:38 Dose: Not Given Gabapentin (Neurontin) 600 mg PO BEDTIME [facility] Last Admin: 08/04/17 21:54 Dose: 600 mg Hydroxyzine Pamoate (Vistaril) 50 mg PO BID [facility] Last Admin: 08/05/17 08:31 Dose: 50 mg Sodium Chloride (Normal Saline) 1,000 mls @ 125 mls/hr IV ASDIRECTED [facility] Sodium Chloride (Normal Saline) 1,000 mls @ 999 mls/hr IV .BOLUS ONE Stop: 08/04/17 15:14 Last Admin: 08/04/17 14:05 Dose: 999 mls/hr Sodium Chloride (Normal Saline) 1,000 mls @ 125 mls/hr IV ASDIRECTED [facility] Last Admin: 08/05/17 03:06 Dose: 125 mls/hr Azithromycin 500 mg/ Sodium (Chloride) 250 mls @ 250 mls/hr IV Q24H [facility] Last Admin: 08/04/17 22:02 Dose: 250 mls/hr Methylprednisolone Sodium Succinate (Solu-Medrol) 125 mg IVPUSH ONETIME ONE Stop: 08/04/17 14:13 Last Admin: 08/04/17 14:27 Dose: 125 mg Methylprednisolone Sodium Succinate (Solu-Medrol) 125 mg IVPUSH Q12H [facility] Last Admin: 08/05/17 15:05 Dose: Not Given Methylprednisolone Sodium Succinate (Solu-Medrol) Confirm Administered Dose 125 mg .ROUTE .STK-MED ONE Stop: 08/04/17 21:15 Last Admin: 08/04/17 22:37 Dose: Not Given Mometasone Furoate/Formoterol Fumar (Dulera 100-5 Mcg) 2 puff IH BID [facility] Last Admin: 08/04/17 21:54 Dose: Not Given Non-Formulary Medication (Capsaicin [Zostrix 0.025% Crm]) 1 applic TOP TID [facility] Last Admin: 08/05/17 01:10 Dose: Not Given Non-Formulary Medication (Magnesium Oxide [Magnesium Oxide]) 420 mg PO BID [facility] Last Admin: 08/05/17 01:11 Dose: Not Given Capsaicin 0.025% (Cream) 0 each TOP TID [facility] Last Admin: 08/04/17 22:30 Dose: 1 each Ondansetron HCl (Zofran) 8 mg IV Q4H PRN PRN Reason: Nausea/Vomiting Sodium Chloride (Saline Flush) 10 ml FLUSH ASDIRECTED PRN PRN Reason: Keep Vein Open Sucralfate (Carafate) 1 gm PO QIDACANDBED [facility] Last Admin: 08/05/17 08:30 Dose: 1 gm Zolpidem Tartrate (Ambien) 5 mg PO ONETIME ONE Stop: 08/04/17 20:30 Last Admin: 08/04/17 22:03 Dose: 5 mg *Q Meaningful Use (DIS) - VTE *Q VTE Criteria *Q: - Stroke *Q Stroke Criteria *Q: - AMI *Q AMI Criteria *Q:
[2017-08-07] MEDS: Aspirin 81 MG Tab.Chew PO SCH (08:13)
[2017-08-07] MEDS: Ferrous Sulfate 325 MG Tab PO SCH (08:13)
[2017-08-07] MEDS: Isosorbide Mononitrate 30 MG Tab.ER PO SCH (08:13)
[2017-08-07] MEDS: Formoterol/Mometasone 100-5 MCG 8.8 GM Inhaler IH SCH (08:13)
[2017-08-07] MEDS: Lisinopril 20 MG Tab PO SCH (08:14)
[2017-08-07] MEDS: Magnesium Oxide 400 MG Tab PO SCH (08:14)
[2017-08-07] MEDS: Famotidine 20 MG Tab PO SCH (08:14)
[2017-08-07] MEDS: predniSONE 20 MG Tab PO SCH (08:14)
[2017-08-07] MEDS: carBAMazepine 100 MG Tab.Chew PO SCH (08:15)
[2017-08-07] MEDS: Multivitamin Tab PO SCH (08:15)
[2017-08-07 08:16] VITALS: BP 160/75
[2017-08-10] MEDS ORDERED: Alendronate 70 MG Tab PO SCH (06:00)
[2017-08-10] MEDS ORDERED: Non-Formulary Medication 1 Each (Cholecalciferol (Vitamin D3) [Vitamin D3] 50,000 UNIT) PO SCH (20:29)
== END 2017-08-07 10:30 | disposition home health service (06) | DRG 191 ==
LOC: FB.ED 12:03 → FB.MS 15:20
PROVIDERS: ADMIT Family Medicine; ATTEND Family Medicine
DX: J44.1 Chronic obstructive pulmonary disease with (acute) exacerbation (principal); R64 Cachexia; Z68.1 Body mass index [BMI] 19.9 or less, adult; R91.1 Solitary pulmonary nodule; E86.0 Dehydration; I10 Essential (primary) hypertension; I25.10 Atherosclerotic heart disease of native coronary artery without angina pectoris; F17.210 Nicotine dependence, cigarettes, uncomplicated; G40.909 Epilepsy, unspecified, not intractable, without status epilepticus; Z86.19 Personal history of other infectious and parasitic diseases; F03.90 Unspecified dementia, unspecified severity, without behavioral disturbance, psychotic disturbance, mood disturbance, and anxiety; E11.9 Type 2 diabetes mellitus without complications; Z99.81 Dependence on supplemental oxygen; R53.1 Weakness; R63.0 Anorexia; Z51.5 Encounter for palliative care; R29.6 Repeated falls; Z86.73 Personal history of transient ischemic attack (TIA), and cerebral infarction without residual deficits; E78.00 Pure hypercholesterolemia, unspecified; I25.2 Old myocardial infarction; D51.0 Vitamin B12 deficiency anemia due to intrinsic factor deficiency; F41.9 Anxiety disorder, unspecified; Z86.59 Personal history of other mental and behavioral disorders; F43.10 Post-traumatic stress disorder, unspecified; M54.9 Dorsalgia, unspecified; G89.29 Other chronic pain; D50.9 Iron deficiency anemia, unspecified; Z98.84 Bariatric surgery status; F12.10 Cannabis abuse, uncomplicated; Z95.5 Presence of coronary angioplasty implant and graft; H91.90 Unspecified hearing loss, unspecified ear; H54.7 Unspecified visual loss; Z90.3 Acquired absence of stomach [part of]; R80.9 Proteinuria, unspecified; E05.90 Thyrotoxicosis, unspecified without thyrotoxic crisis or storm; R91.8 Other nonspecific abnormal finding of lung field; Z88.6 Allergy status to analgesic agent; Z91.041 Radiographic dye allergy status; Z79.82 Long term (current) use of aspirin; Z79.52 Long term (current) use of systemic steroids; Z91.011 Allergy to milk products; Z91.018 Allergy to other foods; Z91.048 Other nonmedicinal substance allergy status
CPT/HCPCS: 36415; 71010; 71250; 80048; 80053; 81001; 82550; 82553; 83036; 83735; 83880; 84439; 84443; 84481; 84484; 85025; 85610; 85651; 93005; 94640; 96361; 96374; 97116-GP; 97162-GP; 97165-GO; 97535-GO; 99285; A9270-GY; J0456; J1940; J2930; J7040; J7050; J7620

== ENCOUNTER 2018-02-23 07:54 | Inpatient (IN) | payer MEDICAID, OTHER ==
[2018-02-23] MEDS ORDERED: Hyoscyamine 0.125 MG Tab.SL *PTOM PO PRN (11:11)
[2018-02-23] MEDS ORDERED: Ondansetron 4 MG Tab.DIS *PTOM PO PRN (11:20)
[2018-02-23] MEDS ORDERED: Scopolamine 1.5 MG Transdermal Patch *PTOM TOP SCH (12:00)
[2018-02-23] MEDS: Morphine 10 MG/0.5 ML Oral Syringe PO PRN ×3 (14:32→22:30)
[2018-02-23] MEDS: Ondansetron 4 MG Tab.DIS *PTOM PO SCH ×2 (14:33→17:27)
[2018-02-23] MEDS: Carvedilol 12.5 MG Tab *PTOM PO SCH (17:23)
[2018-02-23] MEDS: CARBAMAZEPINE 200 MG PO SCH (17:28)
[2018-02-23] MEDS: oxyCODONE 5 MG Tab *PTOM PO PRN ×2 (17:39→23:33)
[2018-02-24] MEDS: Morphine 10 MG/0.5 ML Oral Syringe PO PRN ×5 (03:44→17:42)
[2018-02-24] MEDS: oxyCODONE 5 MG Tab *PTOM PO PRN ×2 (08:35→14:48)
[2018-02-24] MEDS: Isosorbide Mononitrate 30 MG Tab.ER *PTOM PO SCH (08:35)
[2018-02-24] MEDS: CARBAMAZEPINE 200 MG PO SCH ×2 (08:36→17:35)
[2018-02-24] MEDS: Carvedilol 12.5 MG Tab *PTOM PO SCH ×2 (08:36→17:34)
[2018-02-24] MEDS: Ondansetron 4 MG Tab.DIS *PTOM PO SCH ×3 (08:37→17:36)
[2018-02-25] MEDS: Morphine 10 MG/0.5 ML Oral Syringe PO PRN ×8 (03:23→23:00)
[2018-02-25] MEDS: oxyCODONE 5 MG Tab *PTOM PO PRN ×4 (03:24→23:02)
[2018-02-25] MEDS: Carvedilol 12.5 MG Tab *PTOM PO SCH ×2 (08:42→17:04)
[2018-02-25] MEDS: Ondansetron 4 MG Tab.DIS *PTOM PO SCH ×3 (08:42→17:06)
[2018-02-25] MEDS: CARBAMAZEPINE 200 MG PO SCH ×2 (08:43→17:05)
[2018-02-25] MEDS: Isosorbide Mononitrate 30 MG Tab.ER *PTOM PO SCH (08:43)
[2018-02-26] MEDS: Carvedilol 12.5 MG Tab *PTOM PO SCH ×2 (09:00→17:42)
[2018-02-26] MEDS: Ondansetron 4 MG Tab.DIS *PTOM PO SCH ×3 (09:00→17:41)
[2018-02-26] MEDS: CARBAMAZEPINE 200 MG PO SCH ×2 (09:00→17:41)
[2018-02-26] MEDS: Isosorbide Mononitrate 30 MG Tab.ER *PTOM PO SCH (09:05)
[2018-02-26] MEDS: Morphine 10 MG/0.5 ML Oral Syringe PO PRN ×2 (09:31→11:09)
[2018-02-26] MEDS: oxyCODONE 5 MG Tab *PTOM PO PRN ×2 (11:00→11:10)
[2018-02-27] MEDS: oxyCODONE 5 MG Tab *PTOM PO PRN ×4 (00:32→20:37)
[2018-02-27] MEDS: Morphine 10 MG/0.5 ML Oral Syringe PO PRN ×5 (00:33→20:37)
[2018-02-27] MEDS: Carvedilol 12.5 MG Tab *PTOM PO SCH ×2 (07:21→17:34)
[2018-02-27] MEDS: Isosorbide Mononitrate 30 MG Tab.ER *PTOM PO SCH (07:22)
[2018-02-27] MEDS: CARBAMAZEPINE 200 MG PO SCH ×2 (07:22→17:37)
[2018-02-27] MEDS: Ondansetron 4 MG Tab.DIS *PTOM PO SCH ×3 (07:23→17:38)
[2018-02-28] MEDS: Morphine 10 MG/0.5 ML Oral Syringe PO PRN ×4 (01:35→15:33)
[2018-02-28] MEDS: oxyCODONE 5 MG Tab *PTOM PO PRN ×2 (01:36→09:56)
[2018-02-28] MEDS: Ondansetron 4 MG Tab.DIS *PTOM PO SCH ×2 (09:43→12:05)
[2018-02-28] MEDS: Carvedilol 12.5 MG Tab *PTOM PO SCH (09:43)
[2018-02-28] MEDS: Isosorbide Mononitrate 30 MG Tab.ER *PTOM PO SCH (09:45)
[2018-02-28] MEDS: CARBAMAZEPINE 200 MG PO SCH (09:45)
[2018-02-28 14:45] VITALS: BP 156/64
== END 2018-02-28 15:55 | disposition hospice, home (50) | DRG 951 ==
LOC: FB.MS 10:11
PROVIDERS: ADMIT Family Medicine; ATTEND Family Medicine
DX: Z51.5 Encounter for palliative care (principal); C34.90 Malignant neoplasm of unspecified part of unspecified bronchus or lung; Z66 Do not resuscitate
CPT/HCPCS: A9270-GY; Q5005

== ENCOUNTER 2018-04-22 08:32 | Inpatient (IN) | payer OTHER ==
[2018-04-22] MEDS ORDERED: Hyoscyamine 0.125 MG Tab.SL *PTOM PO PRN (10:58)
[2018-04-22] MEDS: Ondansetron 4 MG Tab.DIS *PTOM PO SCH ×2 (14:08→21:03)
[2018-04-22] MEDS: Morphine Oral Concentrate 20 MG/ML 30 ML Bottle *PTOM PO PRN ×2 (15:23→22:17)
[2018-04-22] MEDS: CARBAMAZEPINE 200 MG PO SCH (21:04)
[2018-04-22] MEDS: Carvedilol 12.5 MG Tab *PTOM PO SCH (21:05)
[2018-04-22] MEDS: MORPHINE 30 MG PO SCH (21:13)
[2018-04-23] MEDS: Morphine Oral Concentrate 20 MG/ML 30 ML Bottle *PTOM PO PRN ×9 (04:23→22:43)
[2018-04-23] MEDS: Isosorbide Mononitrate 30 MG Tab.ER *PTOM PO SCH (09:17)
[2018-04-23] MEDS: Carvedilol 12.5 MG Tab *PTOM PO SCH ×2 (09:17→20:27)
[2018-04-23] MEDS: Ondansetron 4 MG Tab.DIS *PTOM PO SCH ×3 (09:18→20:28)
[2018-04-23] MEDS: CARBAMAZEPINE 200 MG PO SCH ×2 (09:18→20:28)
[2018-04-23] MEDS: MORPHINE 30 MG PO SCH ×2 (09:21→20:28)
[2018-04-24] MEDS: Morphine Oral Concentrate 20 MG/ML 30 ML Bottle *PTOM PO PRN ×9 (02:40→23:56)
[2018-04-24] MEDS: Isosorbide Mononitrate 30 MG Tab.ER *PTOM PO SCH (08:14)
[2018-04-24] MEDS: Carvedilol 12.5 MG Tab *PTOM PO SCH ×2 (08:14→22:29)
[2018-04-24] MEDS: MORPHINE 30 MG PO SCH ×2 (08:15→22:30)
[2018-04-24] MEDS: CARBAMAZEPINE 200 MG PO SCH ×2 (08:15→22:29)
[2018-04-24] MEDS: Docusate Sodium/Sennosides 50-8.6 MG Tab *PTOM PO PRN ×2 (08:16→22:34)
[2018-04-24] MEDS: Ondansetron 4 MG Tab.DIS *PTOM PO SCH ×3 (08:16→22:31)
[2018-04-25] MEDS: Morphine Oral Concentrate 20 MG/ML 30 ML Bottle *PTOM PO PRN ×8 (02:40→20:51)
[2018-04-25] MEDS: Carvedilol 12.5 MG Tab *PTOM PO SCH ×2 (08:01→20:52)
[2018-04-25] MEDS: CARBAMAZEPINE 200 MG PO SCH ×2 (08:02→20:54)
[2018-04-25] MEDS: Isosorbide Mononitrate 30 MG Tab.ER *PTOM PO SCH (08:02)
[2018-04-25] MEDS: MORPHINE 30 MG PO SCH ×2 (08:02→20:53)
[2018-04-25] MEDS: Ondansetron 4 MG Tab.DIS *PTOM PO SCH ×3 (08:03→20:55)
[2018-04-26] MEDS: MORPHINE 30 MG PO SCH ×2 (08:50→21:13)
[2018-04-26] MEDS: Carvedilol 12.5 MG Tab *PTOM PO SCH ×2 (08:50→21:11)
[2018-04-26] MEDS: Isosorbide Mononitrate 30 MG Tab.ER *PTOM PO SCH (08:50)
[2018-04-26] MEDS: CARBAMAZEPINE 200 MG PO SCH ×2 (08:51→21:13)
[2018-04-26] MEDS: Ondansetron 4 MG Tab.DIS *PTOM PO SCH (09:03)
[2018-04-26] MEDS: Morphine Oral Concentrate 20 MG/ML 30 ML Bottle *PTOM PO PRN ×3 (13:13→21:23)
[2018-04-26] MEDS: ONDANSETRON 8 MG PO SCH ×2 (13:14→21:18)
--- NOTE | 2018-04-26 18:34 | PCM.PN ---
- General Info Date of Service: 04/26/18 Admission Dx/Problem (Free Text): This is a 66-year-old hospice patient that since [place] for respite care. He's had boil type rashes on his right arm and back for about a week. He has no fevers, chills. They were weeping and recovered. No previous MRSA infection. - Patient Data Vitals - Most Recent: Last Vital Signs Temp 98.8 F 04/25/18 00:10 Pulse 87 04/26/18 08:50 Resp 20 04/24/18 08:00 BP 143/56 H 04/25/18 08:02 Pulse Ox 84 L 04/24/18 08:00 Weight - Most Recent: 118 lb 9 oz I&O - Last 24 Hours: Intake & Output 04/26/18 04/26/18 04/26/18 06:59 14:59 22:59 Output Total 0 Balance 0 Med Orders - Current: Current Medications Carbamazepine (Tegretol Tab) 200 mg PO BID [facility] Last Admin: 04/26/18 08:51 Dose: 200 mg Carvedilol (Coreg) 12.5 mg PO BID [facility] Last Admin: 04/26/18 08:50 Dose: 12.5 mg Hyoscyamine (Hyomax-Sl) 0.125 mg PO Q4H PRN PRN Reason: EXCESSIVE SECRETIONS Isosorbide Mononitrate (Imdur) 30 mg PO DAILY [facility] Last Admin: 04/26/18 08:50 Dose: 30 mg Morphine Sulfate (Morphine 20 Mg/Ml Soln) 10 mg PO Q30M PRN PRN Reason: SHORTNESS OF BREATH/PAIN Last Admin: 04/26/18 13:13 Dose: 10 mg Morphine Sulfate (Ms Contin) 60 mg PO BID [facility] Ondansetron HCl (Zofran Odt) 8 mg PO TID [facility] Last Admin: 04/26/18 13:14 Dose: 8 mg Senna/Docusate Sodium (Senna Plus) 1 tab PO DAILY PRN PRN Reason: CONSTIPATION Last Admin: 04/24/18 22:34 Dose: 1 tab Discontinued Medications Morphine Sulfate (Ms Contin) 30 mg PO BID [facility] Last Admin: 04/26/18 08:50 Dose: 30 mg Ondansetron HCl (Zofran Odt) 4 mg PO TID [facility] Last Admin: 04/25/18 08:03 Dose: 4 mg Ondansetron HCl (Zofran Odt) 8 mg PO TID [facility] Stop: 04/26/18 11:00 Last Admin: 04/26/18 09:03 Dose: 8 mg - Exam General: Alert, Oriented, Cooperative Skin: Other (Erythematous bullae type lesions that are pop. Visually no erythema and drainage this time.) - Problem List & Annotations (1) Skin infection SNOMED Code(s): 921168428 Code(s): L08.9 - LOCAL INFECTION OF THE SKIN AND SUBCUTANEOUS TISSUE, UNSP Status: Acute Current Visit: Yes - Problem List Review Problem List Initiated/Reviewed/Updated: Yes - Plan Plan:: Doxycycline 100 mg twice a day for 10 days. Recheck if it's not improving.
[2018-04-26] MEDS: DOXYCYCLINE 100 MG PO SCH (22:03)
[2018-04-27] MEDS: Docusate Sodium/Sennosides 50-8.6 MG Tab *PTOM PO PRN (09:28)
[2018-04-27] MEDS: Carvedilol 12.5 MG Tab *PTOM PO SCH (09:28)
[2018-04-27] MEDS: Isosorbide Mononitrate 30 MG Tab.ER *PTOM PO SCH (09:29)
[2018-04-27] MEDS: CARBAMAZEPINE 200 MG PO SCH (09:30)
[2018-04-27] MEDS: ONDANSETRON 8 MG PO SCH (09:31)
[2018-04-27 09:33] VITALS: BP 128/69
[2018-04-27] MEDS: MORPHINE 30 MG PO SCH (09:47)
[2018-04-27] MEDS: Morphine Oral Concentrate 20 MG/ML 30 ML Bottle *PTOM PO PRN (09:47)
[2018-04-27] MEDS: DOXYCYCLINE 100 MG PO SCH (11:28)
== END 2018-04-27 12:39 | disposition hospice, home (50) | DRG 951 ==
LOC: FB.MS 12:24
PROVIDERS: ADMIT Family Medicine; ATTEND Family Medicine
DX: Z75.5 Holiday relief care (principal); Z51.5 Encounter for palliative care; Z66 Do not resuscitate; R23.8 Other skin changes
CPT/HCPCS: A9270-GY; Q5005

== ENCOUNTER 2018-05-27 10:40 | Inpatient (IN) | payer OTHER ==
[2018-05-27] MEDS ORDERED: Hyoscyamine 0.125 MG Tab.SL *PTOM PO PRN (11:17)
[2018-05-27] MEDS: Morphine Oral Concentrate 20 MG/ML 30 ML Bottle *PTOM PO PRN ×3 (12:05→23:45)
[2018-05-27] MEDS: ONDANSETRON 8 MG PO SCH ×2 (13:23→20:24)
[2018-05-27] MEDS: MORPHINE 60 MG PO SCH (20:22)
[2018-05-27] MEDS: Carvedilol 6.25 MG Tab *PTOM PO SCH (20:23)
[2018-05-27] MEDS: CARBAMAZEPINE 200 MG PO SCH (20:24)
[2018-05-28] MEDS: Morphine Oral Concentrate 20 MG/ML 30 ML Bottle *PTOM PO PRN ×8 (01:52→21:55)
[2018-05-28] MEDS: Carvedilol 6.25 MG Tab *PTOM PO SCH ×2 (09:30→21:48)
[2018-05-28] MEDS: ONDANSETRON 8 MG PO SCH ×3 (09:30→21:50)
[2018-05-28] MEDS: MORPHINE 60 MG PO SCH ×2 (09:30→21:52)
[2018-05-28] MEDS: CARBAMAZEPINE 200 MG PO SCH ×2 (09:30→21:50)
[2018-05-28] MEDS: Isosorbide Mononitrate 30 MG Tab.ER *PTOM PO SCH (09:30)
[2018-05-29] MEDS: CARBAMAZEPINE 200 MG PO SCH ×2 (09:23→20:21)
[2018-05-29] MEDS: ONDANSETRON 8 MG PO SCH ×3 (09:24→20:21)
[2018-05-29] MEDS: MORPHINE 60 MG PO SCH ×2 (09:25→20:20)
[2018-05-29] MEDS: Morphine Oral Concentrate 20 MG/ML 30 ML Bottle *PTOM PO PRN ×7 (09:25→21:57)
[2018-05-29] MEDS: Isosorbide Mononitrate 30 MG Tab.ER *PTOM PO SCH (09:33)
[2018-05-29] MEDS: Carvedilol 6.25 MG Tab *PTOM PO SCH ×2 (09:36→20:16)
[2018-05-30] MEDS: Morphine Oral Concentrate 20 MG/ML 30 ML Bottle *PTOM PO PRN ×9 (00:16→23:32)
[2018-05-30] MEDS: MORPHINE 60 MG PO SCH ×2 (08:05→20:40)
[2018-05-30] MEDS: CARBAMAZEPINE 200 MG PO SCH ×2 (08:07→20:40)
[2018-05-30] MEDS: Isosorbide Mononitrate 30 MG Tab.ER *PTOM PO SCH (08:07)
[2018-05-30] MEDS: ONDANSETRON 8 MG PO SCH ×3 (08:08→20:40)
[2018-05-30] MEDS: Carvedilol 6.25 MG Tab *PTOM PO SCH ×2 (08:08→20:39)
[2018-05-31] MEDS: Morphine Oral Concentrate 20 MG/ML 30 ML Bottle *PTOM PO PRN ×6 (03:13→23:25)
[2018-05-31] MEDS: MORPHINE 60 MG PO SCH ×2 (08:48→21:49)
[2018-05-31] MEDS: ONDANSETRON 8 MG PO SCH ×3 (08:54→21:47)
[2018-05-31] MEDS: Carvedilol 6.25 MG Tab *PTOM PO SCH ×2 (08:54→21:46)
[2018-05-31] MEDS: Isosorbide Mononitrate 30 MG Tab.ER *PTOM PO SCH (08:55)
[2018-05-31] MEDS: CARBAMAZEPINE 200 MG PO SCH ×2 (08:56→21:47)
[2018-06-01] MEDS: Morphine Oral Concentrate 20 MG/ML 30 ML Bottle *PTOM PO PRN ×4 (01:29→12:29)
[2018-06-01] MEDS: Isosorbide Mononitrate 30 MG Tab.ER *PTOM PO SCH (10:27)
[2018-06-01] MEDS: Carvedilol 6.25 MG Tab *PTOM PO SCH (10:27)
[2018-06-01] MEDS: MORPHINE 60 MG PO SCH (10:31)
[2018-06-01] MEDS: ONDANSETRON 8 MG PO SCH (10:32)
[2018-06-01] MEDS: CARBAMAZEPINE 200 MG PO SCH (10:32)
[2018-06-01 12:50] VITALS: BP 164/67
== END 2018-06-01 12:40 | disposition hospice, home (50) | DRG 951 ==
LOC: FB.MS 10:40
PROVIDERS: ADMIT Family Medicine; ATTEND Family Medicine
DX: Z75.5 Holiday relief care (principal); Z51.5 Encounter for palliative care
CPT/HCPCS: A9270-GY; Q5005

== ENCOUNTER 2018-12-16 13:09 | Inpatient (IN) | payer OTHER ==
[2018-12-16] MEDS ORDERED: HYOSCYAMINE 0.125 MG PO PRN (14:40)
[2018-12-16] MEDS: CARVEDILOL 12.5 MG PO SCH (21:03)
[2018-12-16] MEDS: Tamsulosin 0.4 MG Cap.ER*PTOM PO SCH (21:05)
[2018-12-16] MEDS: CARBAMAZEPINE 200 MG PO SCH (21:06)
[2018-12-16] MEDS: ONDANSETRON 8 MG PO SCH (21:07)
[2018-12-16] MEDS: Docusate Sodium/Sennosides 50-8.6 MG Tab*PTOM PO SCH (21:07)
[2018-12-16] MEDS: DEXAMETHASONE 4 MG PO SCH (21:08)
[2018-12-16] MEDS: MORPHINE 60 MG PO SCH (21:09)
[2018-12-17] MEDS: CARVEDILOL 12.5 MG PO SCH ×2 (09:30→20:49)
[2018-12-17] MEDS: ISOSORBIDE MONONITRATE 30 MG PO SCH (09:30)
[2018-12-17] MEDS: DEXAMETHASONE 4 MG PO SCH ×2 (09:31→20:50)
[2018-12-17] MEDS: ONDANSETRON 8 MG PO SCH ×3 (09:31→20:52)
[2018-12-17] MEDS: Docusate Sodium/Sennosides 50-8.6 MG Tab*PTOM PO SCH ×2 (09:31→20:52)
[2018-12-17] MEDS: CARBAMAZEPINE 200 MG PO SCH ×2 (09:32→20:53)
[2018-12-17] MEDS: MORPHINE 60 MG PO SCH ×3 (09:34→20:50)
[2018-12-17] MEDS: MORPHINE 20 MG/ML PO PRN ×4 (09:35→20:53)
[2018-12-17] MEDS: Tamsulosin 0.4 MG Cap.ER*PTOM PO SCH (20:50)
[2018-12-18] MEDS: MORPHINE 20 MG/ML PO PRN ×6 (00:58→20:56)
[2018-12-18] MEDS: CARVEDILOL 12.5 MG PO SCH ×2 (08:06→20:58)
[2018-12-18] MEDS: DEXAMETHASONE 4 MG PO SCH ×2 (08:08→20:59)
[2018-12-18] MEDS: ISOSORBIDE MONONITRATE 30 MG PO SCH (08:08)
[2018-12-18] MEDS: Docusate Sodium/Sennosides 50-8.6 MG Tab*PTOM PO SCH ×2 (08:09→20:58)
[2018-12-18] MEDS: CARBAMAZEPINE 200 MG PO SCH ×2 (08:10→20:59)
[2018-12-18] MEDS: ONDANSETRON 8 MG PO SCH ×3 (08:10→20:58)
[2018-12-18] MEDS: MORPHINE 60 MG PO SCH ×3 (08:12→20:57)
[2018-12-18] MEDS: Albuterol/Ipratropium 3.0-0.5 MG/3 ML Neb Soln*PTOM INH PRN (10:44)
[2018-12-18] MEDS: Tamsulosin 0.4 MG Cap.ER*PTOM PO SCH (21:00)
[2018-12-19] MEDS ORDERED: Magnesium Hydroxide 400 MG/5 ML Susp 30 ML Cup PO PRN (07:35)
[2018-12-19] MEDS: MORPHINE 20 MG/ML PO PRN ×4 (07:53→20:24)
[2018-12-19] MEDS: ISOSORBIDE MONONITRATE 30 MG PO SCH (08:02)
[2018-12-19] MEDS: CARVEDILOL 12.5 MG PO SCH ×2 (08:04→20:25)
[2018-12-19] MEDS: DEXAMETHASONE 4 MG PO SCH ×2 (08:05→20:26)
[2018-12-19] MEDS: CARBAMAZEPINE 200 MG PO SCH ×2 (08:05→20:27)
[2018-12-19] MEDS: ONDANSETRON 8 MG PO SCH ×3 (08:06→20:26)
[2018-12-19] MEDS: Bisacodyl 5 MG Tab PO PRN (08:06)
[2018-12-19] MEDS: Docusate Sodium/Sennosides 50-8.6 MG Tab*PTOM PO SCH ×2 (08:06→20:26)
[2018-12-19] MEDS: MORPHINE 60 MG PO SCH ×3 (08:08→20:27)
[2018-12-19] MEDS: Tamsulosin 0.4 MG Cap.ER*PTOM PO SCH (20:26)
[2018-12-19] MEDS: Albuterol/Ipratropium 3.0-0.5 MG/3 ML Neb Soln*PTOM INH PRN (20:32)
[2018-12-20] MEDS: MORPHINE 20 MG/ML PO PRN ×5 (02:23→21:59)
[2018-12-20] MEDS: DEXAMETHASONE 4 MG PO SCH ×2 (08:43→20:54)
[2018-12-20] MEDS: Docusate Sodium/Sennosides 50-8.6 MG Tab*PTOM PO SCH ×2 (08:44→20:55)
[2018-12-20] MEDS: CARBAMAZEPINE 200 MG PO SCH ×2 (08:44→20:55)
[2018-12-20] MEDS: Bisacodyl 5 MG Tab PO PRN (08:44)
[2018-12-20] MEDS: MORPHINE 60 MG PO SCH ×3 (08:45→20:54)
[2018-12-20] MEDS: ONDANSETRON 8 MG PO SCH ×3 (08:45→20:55)
[2018-12-20] MEDS: ISOSORBIDE MONONITRATE 30 MG PO SCH (08:48)
[2018-12-20] MEDS: CARVEDILOL 12.5 MG PO SCH ×2 (08:54→20:53)
[2018-12-20] MEDS: Tamsulosin 0.4 MG Cap.ER*PTOM PO SCH (20:55)
[2018-12-21] MEDS: MORPHINE 20 MG/ML PO PRN ×2 (06:44→08:59)
[2018-12-21] MEDS: CARVEDILOL 12.5 MG PO SCH (08:49)
[2018-12-21] MEDS: DEXAMETHASONE 4 MG PO SCH (08:50)
[2018-12-21] MEDS: ISOSORBIDE MONONITRATE 30 MG PO SCH (08:51)
[2018-12-21] MEDS: MORPHINE 60 MG PO SCH (08:51)
[2018-12-21] MEDS: Docusate Sodium/Sennosides 50-8.6 MG Tab*PTOM PO SCH (08:54)
[2018-12-21] MEDS: ONDANSETRON 8 MG PO SCH (08:55)
[2018-12-21] MEDS: CARBAMAZEPINE 200 MG PO SCH (08:55)
[2018-12-21 08:57] VITALS: BP 182/74
== END 2018-12-21 10:10 | disposition hospice, home (50) | DRG 181 ==
LOC: FB.MS 13:09
PROVIDERS: ADMIT Family Medicine; ATTEND Family Medicine
DX: C34.92 Malignant neoplasm of unspecified part of left bronchus or lung (principal); C79.9 Secondary malignant neoplasm of unspecified site; Z75.5 Holiday relief care; Z51.5 Encounter for palliative care; Z66 Do not resuscitate; Z92.21 Personal history of antineoplastic chemotherapy; Z92.3 Personal history of irradiation
CPT/HCPCS: 94640; A9270-GY; J7620-GY; J8540; Q5005

== ENCOUNTER 2019-01-25 10:55 | Inpatient (IN) | payer OTHER, MEDICAID ==
[2019-01-25] MEDS ORDERED: Hyoscyamine 0.125 MG Tab.SL *PTOM PO PRN (11:00)
[2019-01-25] MEDS ORDERED: Bisacodyl 5 MG Tab *PTOM PO PRN (11:09)
[2019-01-25] MEDS: Morphine Oral Concentrate 20 MG/ML 30 ML Bottle *PTOM PO PRN ×9 (11:48→22:45)
[2019-01-25] MEDS: Dexamethasone 4 MG Tab *PTOM PO SCH (12:09)
--- NOTE | 2019-01-25 14:07 | CR ---
INDICATION: Follow up lung CA. CHEST: AP and lateral views of the chest were obtained 01/25/19 and compared with 09/03/17 and 02/17/17, now revealing what appears to be a large mass density in the left hilum anteriorly, extending into the left upper lobe, which measures approximately 90 mm x at least 40 mm. 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 A central line is noted with its tip appearing to be in satisfactory position. The right lung, pleural space, and hilum appear unremarkable. The heart did not appear enlarged. Compression fractures appear unchanged in the lower middle thoracic spine, likely due to osteoporosis with accentuated dorsal kyphosis in that area. IMPRESSION: Large left hilar mass extending into the left upper lobe in the upper middle through lower middle lung field. It measured a maximum of approximately 90 mm. MTDD
[2019-01-25] MEDS: MORPHINE 60 MG PO SCH ×2 (14:26→20:51)
[2019-01-25] MEDS: ONDANSETRON 8 MG PO SCH ×2 (14:28→20:53)
[2019-01-25] MEDS: Albuterol/Ipratropium 3.0-0.5 MG/3 ML Neb Soln *PTOM INH SCH ×2 (16:10→20:50)
[2019-01-25] MEDS: Carvedilol 12.5 MG Tab *PTOM PO SCH (20:49)
[2019-01-25] MEDS: CARBAMAZEPINE 200 MG PO SCH (20:49)
[2019-01-25] MEDS: Tamsulosin 0.4 MG Cap.ER *PTOM PO SCH (20:51)
[2019-01-25] MEDS: Docusate Sodium/Sennosides 50-8.6 MG Tab *PTOM PO SCH (20:52)
[2019-01-26] MEDS: Albuterol/Ipratropium 3.0-0.5 MG/3 ML Neb Soln *PTOM INH SCH ×4 (06:58→21:12)
[2019-01-26] MEDS: MORPHINE 60 MG PO SCH ×3 (11:06→21:14)
[2019-01-26] MEDS: Carvedilol 12.5 MG Tab *PTOM PO SCH ×2 (11:32→21:11)
[2019-01-26] MEDS: Dexamethasone 4 MG Tab *PTOM PO SCH ×2 (11:32)
[2019-01-26] MEDS: Docusate Sodium/Sennosides 50-8.6 MG Tab *PTOM PO SCH ×2 (11:33→21:13)
[2019-01-26] MEDS: Isosorbide Mononitrate 30 MG Tab.ER *PTOM PO SCH (11:33)
[2019-01-26] MEDS: ONDANSETRON 8 MG PO SCH ×3 (11:34→21:15)
[2019-01-26] MEDS: CARBAMAZEPINE 200 MG PO SCH ×2 (11:34→21:14)
[2019-01-26] MEDS: Tamsulosin 0.4 MG Cap.ER *PTOM PO SCH (21:12)
[2019-01-27] MEDS: Albuterol/Ipratropium 3.0-0.5 MG/3 ML Neb Soln *PTOM INH SCH (06:43)
[2019-01-27] MEDS: Morphine Oral Concentrate 20 MG/ML 30 ML Bottle *PTOM PO PRN ×3 (09:43→17:37)
[2019-01-27] MEDS ORDERED: LORazepam 2 MG/ML SDV IM PRN (10:30)
[2019-01-27] MEDS ORDERED: LORazepam 1 MG Tab PRN (10:31)
[2019-01-27] MEDS: Docusate Sodium/Sennosides 50-8.6 MG Tab *PTOM PO SCH (10:32)
[2019-01-27] MEDS: ONDANSETRON 8 MG PO SCH (10:32)
[2019-01-27] MEDS: Carvedilol 12.5 MG Tab *PTOM PO SCH (10:33)
[2019-01-27] MEDS: Dexamethasone 4 MG Tab *PTOM PO SCH (10:33)
[2019-01-27] MEDS: MORPHINE 60 MG PO SCH (10:33)
[2019-01-27] MEDS: Isosorbide Mononitrate 30 MG Tab.ER *PTOM PO SCH (10:33)
[2019-01-27] MEDS: CARBAMAZEPINE 200 MG PO SCH (10:33)
[2019-01-27] MEDS ORDERED: Albuterol/Ipratropium 3.0-0.5 MG/3 ML Neb Soln INH PRN (10:43)
[2019-01-27] MEDS ORDERED: Bisacodyl 10 MG Supp RECTAL PRN (10:44)
[2019-01-27] MEDS: LORazepam Conc Solution 2 MG/ML 30 ML Bottle SL SCH ×3 (11:27→23:24)
[2019-01-27] MEDS ORDERED: ONDANSETRON 8 MG PO PRN (11:32)
[2019-01-27] MEDS: LORazepam Conc Solution 2 MG/ML 30 ML Bottle PO PRN (16:54)
[2019-01-28] MEDS: LORazepam Conc Solution 2 MG/ML 30 ML Bottle SL SCH (06:50)
[2019-01-28] MEDS: Morphine Oral Concentrate 20 MG/ML 30 ML Bottle *PTOM PO PRN (09:10)
[2019-01-28] MEDS: LORazepam Conc Solution 2 MG/ML 30 ML Bottle PO PRN ×2 (09:25→13:34)
[2019-01-28] MEDS: Morphine Oral Concentrate 20 MG/ML 30 ML Bottle PO SCH ×3 (13:34→21:19)
[2019-01-28] MEDS: LORazepam Conc Solution 2 MG/ML 30 ML Bottle PO SCH ×3 (13:37→21:20)
[2019-01-29] MEDS: Morphine Oral Concentrate 20 MG/ML 30 ML Bottle PO SCH ×6 (00:55→21:30)
[2019-01-29] MEDS: LORazepam Conc Solution 2 MG/ML 30 ML Bottle PO SCH ×6 (00:58→21:30)
[2019-01-30] MEDS: Morphine Oral Concentrate 20 MG/ML 30 ML Bottle PO SCH ×6 (01:17→21:04)
[2019-01-30] MEDS: LORazepam Conc Solution 2 MG/ML 30 ML Bottle PO SCH ×7 (01:18→21:05)
[2019-01-31] MEDS: Morphine Oral Concentrate 20 MG/ML 30 ML Bottle PO SCH ×3 (01:11→10:20)
[2019-01-31] MEDS: LORazepam Conc Solution 2 MG/ML 30 ML Bottle PO SCH ×3 (01:12→10:18)
[2019-01-31 11:00] VITALS: BP 195/97
[2019-01-31] MEDS ORDERED: Morphine Oral Concentrate 20 MG/ML 30 ML Bottle PO SCH (12:00)
== END 2019-01-31 13:15 | disposition hospice, inpatient (51) | DRG 951 ==
LOC: UNDOADMIN 10:55 → FB.MS 10:55
PROVIDERS: ADMIT Family Medicine; ATTEND Family Medicine
DX: Z75.5 Holiday relief care (principal); C34.90 Malignant neoplasm of unspecified part of unspecified bronchus or lung; Z51.5 Encounter for palliative care; Z66 Do not resuscitate; Z91.041 Radiographic dye allergy status; Z91.018 Allergy to other foods; Z88.8 Allergy status to other drugs, medicaments and biological substances
CPT/HCPCS: 71046; A9270-GY; J7620-GY; J8540; Q5005